=== PATIENT | female | born 1935 | race Caucasian/White ===

== ENCOUNTER 2018-07-24 16:12 | Inpatient (IN) | payer MEDICARE, OTHER ==
[~2018-07-24] VITALS: Ht 157.5 cm; Wt 42.2 kg
[~2018-07-24 16:12] MED LIST: ATOR80TA18; CALC600T; CLOP75TA19; DENO60DI SQ; FA/M1TAB3; FOLI0.4T2; METO25TA54; NITR0.4T28; TRIA-15
[2018-07-24] MEDS ORDERED: SOD CHLORIDE 0.9% 1,000 ML IV STA (16:20)
--- NOTE | 2018-07-24 17:00 | ERD ---
ER Documentation Chief Complaint Chief Complaint BIB RA FOR DEHYDRATION SENT FROM HER DOCTOR HPI This is an 83-year-old female who is brought to the emergency room for possible dehydration. Initially the report was that she was sent by her doctor but this is not confirmed based on her history. The patient lives alone. Paramedics reported a disheveled living situation. Patient thinks that she may be dehydrated but she denies any significant symptoms. She denies any headache chest pain or shortness of breath. Patient states that she is feeding herself and getting her self to the bathroom. She did mention that she may have been thinking about getting some help at home. Remainder of HPI is somewhat limited. ROS All systems reviewed and are negative except as per history of present illness. Medications Home Meds Discontinued Reported Medications Denosumab (Prolia) 60 Mg/1 Ml Disp.syrin, 60 MG SQ 2TIMES A YEAR 05/02/12 Nitroglycerin (Nitroquick) 0.4 Mg Tab.subl 10/02/09 Fa/Mv,Ca,Fe,Min/Lycopene/Lut (Centrum Tablet) 1 Tab Tablet 06/22/09 Calcium Carbonate (Calcium) 600 Mg Tablet 06/22/09 Folic Acid* (Folic Acid*) 0.4 Mg Tablet 06/22/09 Triamterene/Hydrochlorothiazid (Triamterene-Hctz 37.5-25 Mg Tb) 1 Tab Tablet 06/22/09 Atorvastatin (Lipitor) 80 Mg Tablet 06/22/09 Metoprolol Succinate (Toprol Xl) 25 Mg Tab.sr.24h 06/22/09 Clopidogrel Bisulfate (Plavix) 75 Mg Tablet 06/22/09 Allergies Allergies: Coded Allergies: allopurinol (Verified Allergy, Mild, RASH, 07/24/18) PMhx/Soc History of Surgery: Yes (APPENDECTOMY-1951,OVARIAN CYST-,D&C-,ANGIOPLASTY/STENT-2000,) Anesthesia Reaction: No Hx Neurological Disorder: No Hx Respiratory Disorders: No Hx Cardiac Disorders: Yes (CAD,HTN,HIGH CHOLESTEROL) Hx Psychiatric Problems: Yes Hx Miscellaneous Medical Probl: No (HTN, HIHG CHOLESTEROL,PVD) Hx Alcohol Use: No Hx Substance Use: No Hx Tobacco Use: No Smoking Status: Never smoker FmHx Family History: No diabetes Physical Exam Vitals Vital Signs Date Temp Pulse Resp B/P (MAP) Pulse Ox O2 O2 Flow FiO2 Time Delivery Rate 07/24/18 95 26 142/74 97 Room Air 19:00 (96) 07/24/18 89 18 151/75 100 18:00 (100) 07/24/18 98.7 104 18 190/79 100 16:24 (116) Physical Exam General: Cachectic elderly female, somewhat disheveled, unkempt Head: Normocephalic, atraumatic. Eyes: Pupils equally reactive, EOM intact ENT: Moist mucous membranes Neck: Supple, no lymphadenopathy Respiratory: Lungs clear bilaterally, no distress Cardiovascular: RRR, no murmurs, rubs, or gallops Abdominal: Soft, non-tender, non-distended, no peritoneal signs : Deferred MSK: No edema, no unilateral swelling, 5/5 strength Neurologic: Alert and oriented, moving all extremities, normal speech, no focal weakness, no cerebellar signs Skin: No rash Psych: Normal mood Result Diagram: 07/24/18 1643 07/24/18 1644 Results 24 hrs Laboratory Tests Test 07/24/18 16:43 07/24/18 16:44 07/24/18 19:25 White Blood Count 6.6 10^3/ul Red Blood Count 4.04 10^6/ul Hemoglobin 10.4 g/dl Hematocrit 33.1 % Mean Corpuscular Volume 81.9 fl Mean Corpuscular Hemoglobin 25.7 pg Mean Corpuscular 31.4 g/dl Hemoglobin Concent Red Cell Distribution Width 15.3 % Platelet Count 418 10^3/UL Mean Platelet Volume 9.2 fl Immature Granulocytes % 0.300 % Neutrophils % 81.1 % Lymphocytes % 9.6 % Monocytes % 8.5 % Eosinophils % 0.2 % Basophils % 0.3 % Nucleated Red Blood Cells % 0.0 /100WBC Immature Granulocytes # 0.020 10^3/ul Neutrophils # 5.4 10^3/ul Lymphocytes # 0.6 10^3/ul Monocytes # 0.6 10^3/ul Eosinophils # 0.0 10^3/ul Basophils # 0.0 10^3/ul Nucleated Red Blood Cells # 0.0 10^3/ul Prothrombin Time 14.0 Sec Prothrombin Time Ratio 1.1 INR International 1.07 Normalized Ratio Activated Partial Thromboplast 31.1 Sec Time Sodium Level 140 mmol/L Potassium Level 3.8 mmol/L Chloride Level 105 mmol/L Carbon Dioxide Level 30 mmol/L Anion Gap 5 Blood Urea Nitrogen 14 mg/dl Creatinine 0.81 mg/dl Est Glomerular Filtrat mL/min Rate mL/min Glucose Level 120 mg/dl Calcium Level 8.9 mg/dl Total Bilirubin 0.3 mg/dl Direct Bilirubin 0.00 mg/dl Indirect Bilirubin 0.3 mg/dl Aspartate Amino 23 IU/L Transf (AST/SGOT) Alanine 18 IU/L Aminotransferase (ALT/SGPT) Alkaline Phosphatase 102 IU/L Troponin I 0.021 ng/ml Total Protein 5.6 g/dl Albumin 2.7 g/dl Globulin 2.90 g/dl Albumin/Globulin Ratio 0.93 Free Thyroxine Index 2.71 ug/ml Thyroxine (T4) 6.1 ug/dl Triiodothyronine (T3) Uptake 44.4 % Urine Color YELLOW Urine Clarity CLEAR Urine pH 7.0 Urine Specific [place] 1.023 Urine Ketones NEGATIVE mg/dL Urine Nitrite NEGATIVE mg/dL Urine Bilirubin NEGATIVE mg/dL Urine Urobilinogen NEGATIVE mg/dL Urine Leukocyte Esterase NEGATIVE Todd/ul Urine Hemoglobin NEGATIVE mg/dL Urine Glucose NEGATIVE mg/dL Urine Total Protein NEGATIVE mg/dl Current Medications Medications Dose Sig/Stef Start Time Status Last (Trade) Ordered Route PRN Stop Time Admin Dose Reason Admin Sodium 1,000 ml @ Q1H STAT 07/24/18 DC 07/24/18 Chloride 1,000 mls/hr IV 16:20 16:49 07/24/18 17:19 IV Flush 10 ml STK-MED 07/24/18 DC (NS 10 ml) ONCE .ROUTE 18:32 07/24/18 18:33 Sodium 100 ml @ ud STK-MED 07/24/18 DC Chloride ONCE .ROUTE 18:32 07/24/18 18:33 Iohexol 150 ml STK-MED 07/24/18 DC (Omnipaque ONCE .ROUTE 18:32 300mg/ ml) 07/24/18 18:33 Ondansetron 4 mg BRIDGE ORDER 07/24/18 HCl (Zofran PRN IV 20:00 Inj) NAUSEA/VOMITI 07/25/18 19:59 NG 650 mg ER BRIDGE 07/24/18 Acetaminophen PRN PO 20:00 (Tylenol .MILD PAIN 07/25/18 19:59 Tab) 1-3 OR TEMP IV Flush 3 ml PER 07/24/18 (NS 3 ml) PROTOCOL IV 20:00 Ondansetron 4 mg Q6H PRN 07/24/18 HCl (Zofran PO 20:00 Tab) NAUSEA/VOMITI NG 650 mg Q6H PRN 07/24/18 Acetaminophen PO .PAIN 1-3 20:00 (Tylenol OR TEMP Tab) 1 tab Q6H PRN 07/24/18 Acetaminophen PO .MOD PAIN 20:00 / 4-6 Hydrocodone Bitart ([place] (5/325)) Docusate 100 mg Q12H PRN 07/24/18 Sodium PO 20:00 (Colace) .CONSTIPATION Bisacodyl 5 mg DAILY PRN 07/24/18 (Dulcolax) PO 20:00 .CONSTIPATION Heparin 5,000 unit Q8 SC 07/24/18 Sodium 22:00 (Porcine) (Heparin (5000 Units/1ml)) Procedures/MDM EKG, MONITORS, & DIAGNOSTIC IMAGING: EKG: I reviewed and interpreted a 12-lead EKG. Rhythm: Normal sinus rhythm ST Changes: No contiguous ST segment elevations T waves: No contiguous T wave inversions Impression: No evidence of acute cardiac ischemia Chest x-ray: I reviewed and interpreted a 1 view of the chest Mediastinum: No enlargement Cardiac silhouette: No cardiomegaly Airspace: Left upper lung field mass, new Bones: No evidence of fracture CT IMPRESSION: 1. Left lung demonstrates a soft tissue mass-like area extending from the left hilum to the lateral pleural surface. This density measures 6.8 x 4.7 x 5.3 cm. There are no air bronchograms within the soft tissue density. The margins appears somewhat spiculated. There is compression of the left lower lobe pulmonary artery by the mass. The findings are suggestive of a neoplastic mass, likely perihilar location, with peripheral atelectasis associated. Consider tissue sampling. 2. 9 mm slightly spiculated nodule in the posterior aspect of the right upper lobe. 3 mm right apical nodule seen laterally. This is concerning for possible metastatic disease. 3. There is a T12 compression fracture which is indeterminate in age. There may be a focal lesion within the T12 vertebral body. This raises concern for a pathologic fracture, secondary to focal metastasis.. 4. Diffuse osteopenia. Severe old, benign T7 compression fracture. RPTAT: [facility] LAB INTERPRETATION: I reviewed the laboratory testing and it shows no evidence of acute process MEDICAL DECISION MAKING: It is unclear exactly what triggered the patient's visit to the emergency room. She states that she did not call EMS. It does sound like there is possible significant issues with her home social situation. The patient is very unkempt, it appears the paramedics were concerned about her living situation. administrative services specialist has been consulted for evaluation and discharge planning. Clinically the patient may have some mild evidence of dehydration. She has a nonfocal neurologic exam. Low concern for stroke, ACS or infectious process. However, given her age it would be appropriate to check lavatory testing to rule out severe dehydration or alternative ischemic process. ER COURSE: * Laboratory testing is reassuring. However the patient has a new mass on chest x-ray. CT of the chest confirms likely metastatic disease. Patient on these findings the patient would benefit from hospitalization for further disposition planning, prognosis and treatment plan. * bed worker has evaluated the patient it does appear that she does have some decent director of social work resources. They will continue to follow. CONSULTATION: None DISPOSITION PLAN: Accepting care team and consultations: I discussed the current laboratory data, diagnostic imaging and emergency care provided. Admitting team: Dr. Fox Admitting team indication: Insurance directed Departure Diagnosis: Primary Impression: Lung mass Condition: Stable KRYSTLE QUEZADA MD Jul 24, 2018 17:00
[2018-07-24] MEDS ORDERED: IOHEXOL 300MG/ML 150 ML BTL ONE (18:32)
[2018-07-24] MEDS ORDERED: SOD CHLORIDE 0.9% 100 ML ONE (18:32)
[2018-07-24] MEDS ORDERED: BISACODYL (EC) 5 MG TAB PO PRN (20:00)
[2018-07-24] MEDS ORDERED: HYDROCODONE/APAP (5/325) TAB PO PRN (20:00)
[2018-07-24] MEDS ORDERED: ONDANSETRON 4 MG INJ IV PRN (20:00)
[2018-07-24] MEDS ORDERED: DOCUSATE SODIUM 100 MG CAP PO PRN (20:00)
[2018-07-24] MEDS ORDERED: ONDANSETRON 4 MG TAB PO PRN (20:00)
[2018-07-24] MEDS ORDERED: NACL 0.9% 3 ML SYG IV SCH (20:00)
[2018-07-24] MEDS ORDERED: ACETAMINOPHEN 325 MG TAB PO PRN ×2 (20:00)
--- NOTE | 2018-07-24 20:07 | HP ---
Date/Time of Note Date/Time of Note DATE: 07/24/18 TIME: 20:03 Assessment/Plan VTE Prophylaxis SCD applied (from Nsg): Yes Pharmacological prophylaxis: NA/contraindicated Pharm contraindication: low risk/ambulating Lines/Catheters IV Catheter Type (from Nrsg): Saline Lock Assessment/Plan Hospital Course This is a 83-year-old female being admitted to the [facility] floor for: #1 acute mild dehydration: IV fluid hydration with normal saline. Will encourage p.o. intake. #2 Lung mass: CT of the abdomen shows a lung mass please see CT report for details. Patient would like to obtain a biopsy to find out the diagnosis, however she states that she does not want to undergo any treatment such as chemotherapy for it if it does bottom turning lathe tender to be cancer. Will consult hematology Dr. Reinoso. Will order a ultrasound-guided biopsy. Consider hospice evaluation. #3 multiple nodules: CT scan showed multiple nodules please see report. Likely secondary to underlying malignancy. Will obtain a CT biopsy of the lung mass #4 pathologic fracture of the spine: Again likely secondary to malignancy, supportive care. #5 protein calorie malnutrition: IV fluid hydration. Encourage p.o. intake. Di etary consultation. #6 generalized weakness: IV fluid hydration, will obtain a PT evaluation. Soci al work consult. Consider hospice evaluation. #7 accelerated hypertension: Patient currently not on any medications. She did present with blood pressures in the 190 systolic. I will start her on Norvasc 2.5 mg p.o. daily #8 DVT GI prophylaxis: SCDs, no GI prophylaxis indicated Further treatment strategy will be implemented as per the clinical course CODE STATUS: DNR/DNI Result Diagram: 07/24/18 1643 07/24/18 1644 Results 24hrs Laboratory Tests Test 07/24/18 16:43 07/24/18 16:44 07/24/18 19:25 White Blood Count 6.6 Red Blood Count 4.04 L Hemoglobin 10.4 L Hematocrit 33.1 L Mean Corpuscular Volume 81.9 L Mean Corpuscular Hemoglobin 25.7 L Mean Corpuscular Hemoglobin Concent 31.4 L Red Cell Distribution Width 15.3 H Platelet Count 418 H Mean Platelet Volume 9.2 Immature Granulocytes % 0.300 Neutrophils % 81.1 H Lymphocytes % 9.6 L Monocytes % 8.5 Eosinophils % 0.2 Basophils % 0.3 Nucleated Red Blood Cells % 0.0 Immature Granulocytes # 0.020 Neutrophils # 5.4 Lymphocytes # 0.6 L Monocytes # 0.6 Eosinophils # 0.0 Basophils # 0.0 Nucleated Red Blood Cells # 0.0 Prothrombin Time 14.0 Prothrombin Time Ratio 1.1 INR International Normalized Ratio 1.07 Activated Partial Thromboplast Time 31.1 Sodium Level 140 Potassium Level 3.8 Chloride Level 105 Carbon Dioxide Level 30 Anion Gap 5 Blood Urea Nitrogen 14 Creatinine 0.81 Est Glomerular Filtrat Rate mL/min Glucose Level 120 Calcium Level 8.9 Total Bilirubin 0.3 Direct Bilirubin 0.00 Indirect Bilirubin 0.3 Aspartate Amino Transf (AST/SGOT) 23 Alanine Aminotransferase (ALT/SGPT) 18 Alkaline Phosphatase 102 Troponin I 0.021 Total Protein 5.6 L Albumin 2.7 L Globulin 2.90 Albumin/Globulin Ratio 0.93 Free Thyroxine Index 2.71 Thyroxine (T4) 6.1 Triiodothyronine (T3) Uptake 44.4 H Urine Color YELLOW Urine Clarity CLEAR Urine pH 7.0 Urine Specific [place] 1.023 Urine Ketones NEGATIVE Urine Nitrite NEGATIVE Urine Bilirubin NEGATIVE Urine Urobilinogen NEGATIVE Urine Leukocyte Esterase NEGATIVE Urine Hemoglobin NEGATIVE Urine Glucose NEGATIVE Urine Total Protein NEGATIVE HPI/ROS Admit Date/Time Admit Date/Time Hx of Present Illness Chief complaint: Dehydration This is an 83-year-old female who is brought to the emergency room for possible dehydration. Initially the report was that she was sent by her doctor but this is not confirmed based on her history. The patient lives alone. Paramedics reported a disheveled living situation. Patient thinks that she may be dehydrated but she denies any significant symptoms. She denies any headache chest pain or shortness of breath. Patient states that she is feeding herself and getting her self to the bathroom. She did mention that she may have been thinking about getting some help at home. aircraft layout worker did see the patient and it was found that the patient does not have any family members or friends relatives. She reports that her industrial production manager is closest person to her at her living space. Please see social work note for full details. Patient does report that she has noted some dizzy spells at times. And has been short of breath and has had weight loss. She does report a poor appetite. Does report a history of nodules that were removed but she denies any history of cancer. Allergies: Allopurinol, chicken , turkey Medications: None ROS Const: As per HPI Eyes : No pain discharge or redness or change in visual acuity ENT: No pain, sore throat, congestion, congestion, dysphagia or discharge Respiratory: As per HPI Cardiovascular: No chest pain, palpitation, PND, or edema GI : no change in appetite, abdominal pain, nausea, vomiting, diarrhea, constipation, or change in the color his stool Genitourinary: No dysuria, hematuria, flank pain , discharge or CVA tenderness Musculoskeletal: No joint pain, back pain, neck pain, restricted range of motion in neck or joints Skin: No rash, bruising or hives Neuro: No headache, dizziness, syncope, seizure, focal weakness Endocrine: No polyuria, polydipsia, temperature intolerance Psych: No hallucination, depression, anxiety or suicidal ideation PMH/Family/Social Past Medical History Hypertension, hyperlipidemia Medications Current Medications Ondansetron HCl (Zofran Inj) 4 mg BRIDGE ORDER PRN IV NAUSEA/VOMITING; Start 07/24/18 at 20:00; Stop 07/25/18 at 19:59 Acetaminophen (Tylenol Tab) 650 mg ER BRIDGE PRN PO .MILD PAIN 1-3 OR TEMP; Start 07/24/18 at 20:00; Stop 07/25/18 at 19:59 IV Flush (NS 3 ml) 3 ml PER PROTOCOL IV ; Start 07/24/18 at 20:00; Status UNV Ondansetron HCl (Zofran Tab) 4 mg Q6H PRN PO NAUSEA/VOMITING; Start 07/24/18 at 20:00; Status UNV Acetaminophen (Tylenol Tab) 650 mg Q6H PRN PO .PAIN 1-3 OR TEMP; Start 07/24/18 at 20:00; Status UNV Acetaminophen/ Hydrocodone Bitart ([place] (5/325)) 1 tab Q6H PRN PO .MOD PAIN 4- 6; Start 07/24/18 at 20:00; Status UNV Docusate Sodium (Colace) 100 mg Q12H PRN PO .CONSTIPATION; Start 07/24/18 at 20:00; Status UNV Bisacodyl (Dulcolax) 5 mg DAILY PRN PO .CONSTIPATION; Start 07/24/18 at 20:00; Status UNV Heparin Sodium (Porcine) (Heparin (5000 Units/1ml)) 5,000 unit Q8 SC ; Start 07/24/18 at 22:00; Status UNV Coded Allergies: chicken derived (Verified Allergy, Intermediate, upset stomach/diarrhea , 07/24/18) turkey (Verified Allergy, Intermediate, upset stomach/diarrha , 07/24/18) allopurinol (Verified Allergy, Mild, RASH, 07/24/18) Past Surgical History Appendectomy, partial hysterectomy, tumor removal? Family History Significant Family History: no pertinent family hx Social History Alcohol Use: none Smoking Status: Former smoker Drug Use: none Exam/Review of Systems Vital Signs Vitals Vital Signs Date Temp Pulse Resp B/P (MAP) Pulse Ox O2 O2 Flow FiO2 Time Delivery Rate 07/24/18 95 26 142/74 97 Room Air 19:00 (96) 07/24/18 98.7 16:24 Exam Exam General: This is a very pleasant, thin/cachectic appearing female lying in bed in no acute distress HEENT: Atraumatic, normocephalic. The pupils are equal, round and reactive. Extraocular motor are intact mucous membranes dry Neck: Supple with full range of motion. No rigidity or meningismus Chest: Nontender Lungs: Diminished breath sounds at the left lung base Heart: Normal S1-S2, Regular rhythm and rate. No murmur, S3, or S4 Abdomen: Soft , nontender, nondistended , bowel sounds are present. No guarding no rebound tenderness , No masses or organomegaly. No costovertebral temporal angle mass Extremities: Normal to inspection, no edema no cyanosis Neurologic: Normal mental status, speech normal, cranial nerves II through XII are intact, motor and sensory are intact, Additional Comments PROCEDURE: XR Chest. CLINICAL INDICATION: Altered mental status TECHNIQUE: Single frontal view of the chest was obtained COMPARISON: CR CHEST 05/02/2012; CR PORT CHEST 08/04/2008; CR PORTABLE CHEST 05/17/2008 FINDINGS: There is new increased density in left perihilar region suspicious for a mass with postobstructive infiltrate. CT chest with contrast is recommended for further evaluation. There is minimal prominence of the lung interstitium likely minimal chronic changes. Enlargement of the cardiac silhouette again seen. Likely small left pleural effusion appearing since previous studies. Calcification in the aortic arch. The patient is mildly rotated to the left. ECG leads project over the chest. IMPRESSION: There is new increased density in left perihilar region suspicious for a mass with postobstructive infiltrate. Suspicious for nodular densities in bilateral upper lungs the larger approximate 1 cm on the left. CT chest with contrast is recommended for further evaluation. Enlargement of the cardiac silhouette again seen. Likely small left pleural effusion appearing since previous studies. RPTAT: [facility] .Vasyl Valencia MD, Date Time Electronically viewed and signed by .Vasyl Valencia MD, on 07/24/2018 17:25 .S/ CC: KRYSTLE QUEZADA MD [id number] PROCEDURE: CT Chest With Intravenous Contrast CLINICAL INDICATION: Abnormal chest x-ray. Left lung mass versus infiltrate. TECHNIQUE: Axial computed tomography images of the chest with intravenous contrast. Sagittal and coronal reformatted images were created and reviewed. CTDIvol (mGy) = 3.36; total DLP (mGy-cm) = 113.88. This CT exam was performed using one or more of the following dose reduction techniques: automated exposure control, adjustment of the mA and/or kV according to patient size, and/or use of iterative reconstruction technique. DICOM images are available. CONTRAST: 100 mL of Omnipaque-300 was administered intravenously. COMPARISON: XR chest dated 07/24/2018 (07/24/2018) FINDINGS: LUNGS: Left lung demonstrates a soft tissue mass-like area extending from the left hilum to the lateral pleural surface. This density measures 6.8 x 4.7 x 5.3 cm. There are no air bronchograms within the soft tissue density. The margins appears somewhat spiculated. There is compression of the left lower lobe pulmonary artery by the mass. 9 mm slightly spiculated nodule in the posterior aspect of the right upper lobe. 3 mm right apical nodule seen laterally. PLEURAL SPACE: Unremarkable. Unremarkable. No pneumothorax. HEART: No cardiomegaly. No significant pericardial effusion. BONES/JOINTS: There is a T12 compression fracture which is indeterminate in age. There may be a focal lesion within the T12 vertebral body. This raises concern for a pathologic fracture, secondary to focal metastasis.. Diffuse osteopenia. Severe old, benign T7 compression fracture. No dislocation. SOFT TISSUES: No acute abnormality of the soft tissues. There is virtually no subcutaneous fat, suggesting cachexia. VASCULATURE: Atherosclerosis of the thoracic aorta. No dissection or aneurysm. LYMPH NODES: Unremarkable. No enlarged lymph nodes. IMPRESSION: 1. Left lung demonstrates a soft tissue mass-like area extending from the left hilum to the lateral pleural surface. This density measures 6.8 x 4.7 x 5.3 cm. There are no air bronchograms within the soft tissue density. The margins appears somewhat spiculated. There is compression of the left lower lobe pulmonary artery by the mass. The findings are suggestive of a neoplastic mass, likely perihilar location, with peripheral atelectasis associated. Consider tissue sampling. 2. 9 mm slightly spiculated nodule in the posterior aspect of the right upper lobe. 3 mm right apical nodule seen laterally. This is concerning for possible metastatic disease. 3. There is a T12 compression fracture which is indeterminate in age. There may be a focal lesion within the T12 vertebral body. This raises concern for a pathologic fracture, secondary to focal metastasis.. 4. Diffuse osteopenia. Severe old, benign T7 compression fracture. RPTAT: [facility] [place] Physician Inspector [employer] Date Time Electronically viewed and signed by [place] Physician Inspector [employer] on 07/24/2018 19:27 C/ CC: KRYSTLE QUEZADA MD [id number] ALLY VALLEJO Jul 24, 2018 20:07
[2018-07-24 21:48] VITALS: Ht 157.5 cm; Wt 42.2 kg
[2018-07-24 22:00] VITALS: PULSE 97
[2018-07-24 22:04] VITALS: BP 155/84; RESP 18
[2018-07-24] MEDS: HEPARIN 5,000 UNIT/1 ML VIAL SC SCH (22:37)
[2018-07-25] VITALS (10 sets, daily range): BP systolic 111–193; BP diastolic 58–98; PULSE 73–114; RESP 14–20
[2018-07-25] MEDS: HEPARIN 5,000 UNIT/1 ML VIAL SC SCH ×3 (05:44→21:20)
[2018-07-25] MEDS: AMLODIPINE 2.5 MG TAB PO SCH (09:57)
--- NOTE | 2018-07-25 13:21 | PN ---
Date/Time of Note Date/Time of Note DATE: 07/25/18 TIME: 13:17 Assessment/Plan VTE Prophylaxis Risk score (from Nsg)>0 risk: 4 SCD applied (from Nsg): Yes Pharmacological prophylaxis: heparin Lines/Catheters IV Catheter Type (from Nrs): Saline Lock Urinary Cath still in place: No Assessment/Plan Hospital Course SUBJECTIVE: Denies any pain. Complains of urinary urgency and frequency. OBJECTIVE: Physical Exam General: Thin, frail looking, 83 year-old female lying in bed in no apparent distress. HEENT: Normocephalic, atraumatic. Eyes: Anicteric sclerae, conjunctivae clear. ENT: Nasal septum midline, oral mucosa moist. Neck supple, no JVD noticed. Respiratory: Bilaterally diminished breath sounds. No use of accessory muscles of respiration. No adventitious breath sounds. Cardiovascular: S1, S2 heard. Occasional skipped beats. Abdomen: Soft, nontender, and nondistended. Bowel sounds positive in all 4 quadrants. Genitourinary: Deferred. Extremities: No cyanosis, no clubbing, no edema. Peripheral pulses palpable. Neurologic: Cranial nerves II through XII grossly intact. The patient is awake, alert, and oriented. Skin: Normal skin turgor. No skin rashes. Labs & Vitals per chart ASSESSMENT & PLAN 83-year-old female with past medical history of CAD with coronary artery stents, severe peripheral artery disease, hypertension, and dyslipidemia, not on any medications at home, who was brought to the emergency room for possible dehydration. In the emergency room, the patient was noticed to have a microcytic, hypochromic anemia. Patient's a chest x-ray was showing left perihilar region increased density with the chest CT showing is soft tissue masslike area measuring 6.8 x 4.7 x 5.3 cm, was admitted to inpatient setting f or further treatment and evaluation. 1. Suspicious soft tissue lung mass. Etiology unclear. CT-guided biopsy has been ordered for diagnostic evaluation. 2. Hypertension. The patient was started on appropriate antihypertensives. 3. CAD with coronary artery stents. Patient was not on any aspirin or statins at home. Start the patient on aspirin and statins. 4. Severe peripheral artery disease. Continue the patient on aspirin and statins. 5. T12 compression fracture. Continue analgesics as needed. 6. Microcytic, hypochromic anemia. Iron panel showing iron deficiency. Start iron supplements. 7. Severe protein calorie malnutrition. Dietary consult. 8. Failure to thrive. The patient lives by herself and has no immediate family members. Obtain social work consult. 9. Fluids, electrolytes, and nutrition. Regular diet. 10. DVT prophylaxis. Subcutaneous heparin. 11. Plan. Await biopsy of the lung lesion. Continue blood pressure control. Await social work evaluation. The patient was seen in collaboration with Dr. Lancaster. Result Diagram: 07/25/18 0453 07/25/18 0453 Results 24hrs Laboratory Tests Test 07/24/18 16:43 07/24/18 16:44 07/24/18 19:25 07/25/18 04:53 White Blood Count 6.6 5.0 # Red Blood Count 4.04 L 3.80 L Hemoglobin 10.4 L 9.7 L Hematocrit 33.1 L 31.1 L Mean Corpuscular 81.9 L 81.8 L Volume Mean Corpuscular 25.7 L 25.5 L Hemoglobin Mean Corpuscular 31.4 L 31.2 L Hemoglobin Concent Red Cell 15.3 H 15.2 H Distribution Width Platelet Count 418 H 384 Mean Platelet Volume 9.2 9.4 Immature 0.300 0.400 Granulocytes % Neutrophils % 81.1 H 78.6 H Lymphocytes % 9.6 L 11.4 L Monocytes % 8.5 9.0 Eosinophils % 0.2 0.2 Basophils % 0.3 0.4 Nucleated Red Blood 0.0 0.0 Cells % Immature 0.020 0.020 Granulocytes # Neutrophils # 5.4 3.9 Lymphocytes # 0.6 L 0.6 L Monocytes # 0.6 0.5 Eosinophils # 0.0 0.0 Basophils # 0.0 0.0 Nucleated Red Blood 0.0 0.0 Cells # Prothrombin Time 14.0 14.5 Prothrombin Time 1.1 1.1 Ratio INR International 1.07 1.12 Normalized Ratio Activated 31.1 31.0 Partial Thromboplast Time Sodium Level 140 142 Potassium Level 3.8 3.2 L Chloride Level 105 109 Carbon Dioxide Level 30 27 Anion Gap 5 6 Blood Urea Nitrogen 14 13 Creatinine 0.81 0.80 Est Glomerular Filtrat Rate mL/min Glucose Level 120 121 Calcium Level 8.9 8.1 L Total Bilirubin 0.3 0.3 Direct Bilirubin 0.00 0.00 Indirect Bilirubin 0.3 0.3 Aspartate Amino 23 18 Transf (AST/SGOT) Alanine 18 15 Aminotransferase (AL T/SGPT) Alkaline Phosphatase 102 93 Troponin I 0.021 Total Protein 5.6 L 5.5 L Albumin 2.7 L 2.5 L Globulin 2.90 3.00 Albumin/Globulin 0.93 0.83 Ratio Free Thyroxine Index 2.71 Thyroxine (T4) 6.1 Triiodothyronine 44.4 H (T3) Uptake Urine Color YELLOW Urine Clarity CLEAR Urine pH 7.0 Urine Specific 1.023 [place] Urine Ketones NEGATIVE Urine Nitrite NEGATIVE Urine Bilirubin NEGATIVE Urine Urobilinogen NEGATIVE Urine Leukocyte NEGATIVE Esterase Urine Hemoglobin NEGATIVE Urine Glucose NEGATIVE Urine Total Protein NEGATIVE Hemoglobin A1c 5.5 Magnesium Level 1.3 L Iron Level 14 L Total Iron Binding 163 L Capacity Percent Iron 9 L Saturation Ferritin 136.0 Triglycerides Level 135 Cholesterol Level 178 LDL Cholesterol, 118 Calculated HDL Cholesterol 33 Cholesterol/HDL 5.3 Ratio Carcinoembryonic 4.2 Antigen CA 19-9 Antigen 4.7 CA 125 Antigen 82.7 H Thyroid Stimulating 2.400 Hormone (TSH) Exam/Review of Systems Exam Vitals Vital Signs Date Temp Pulse Resp B/P (MAP) Pulse Ox O2 O2 Flow FiO2 Time Delivery Rate 07/25/18 95 181/81 09:51 (114) 07/25/18 98.0 14 95 07:52 07/24/18 Room Air 19:00 Intake and Output 07/24/18 07/24/18 07/25/18 1515:00 23:00 07:00 IntakeIntake Total 160 ml OutputOutput Total 400 ml BalanceBalance -240 ml Results Results 24hrs Laboratory Tests Test 07/24/18 16:43 07/24/18 16:44 07/24/18 19:25 07/25/18 04:53 White Blood Count 6.6 5.0 # Red Blood Count 4.04 L 3.80 L Hemoglobin 10.4 L 9.7 L Hematocrit 33.1 L 31.1 L Mean Corpuscular 81.9 L 81.8 L Volume Mean Corpuscular 25.7 L 25.5 L Hemoglobin Mean Corpuscular 31.4 L 31.2 L Hemoglobin Concent Red Cell 15.3 H 15.2 H Distribution Width Platelet Count 418 H 384 Mean Platelet Volume 9.2 9.4 Immature 0.300 0.400 Granulocytes % Neutrophils % 81.1 H 78.6 H Lymphocytes % 9.6 L 11.4 L Monocytes % 8.5 9.0 Eosinophils % 0.2 0.2 Basophils % 0.3 0.4 Nucleated Red Blood 0.0 0.0 Cells % Immature 0.020 0.020 Granulocytes # Neutrophils # 5.4 3.9 Lymphocytes # 0.6 L 0.6 L Monocytes # 0.6 0.5 Eosinophils # 0.0 0.0 Basophils # 0.0 0.0 Nucleated Red Blood 0.0 0.0 Cells # Prothrombin Time 14.0 14.5 Prothrombin Time 1.1 1.1 Ratio INR International 1.07 1.12 Normalized Ratio Activated 31.1 31.0 Partial Thromboplast Time Sodium Level 140 142 Potassium Level 3.8 3.2 L Chloride Level 105 109 Carbon Dioxide Level 30 27 Anion Gap 5 6 Blood Urea Nitrogen 14 13 Creatinine 0.81 0.80 Est Glomerular Filtrat Rate mL/min Glucose Level 120 121 Calcium Level 8.9 8.1 L Total Bilirubin 0.3 0.3 Direct Bilirubin 0.00 0.00 Indirect Bilirubin 0.3 0.3 Aspartate Amino 23 18 Transf (AST/SGOT) Alanine 18 15 Aminotransferase (AL T/SGPT) Alkaline Phosphatase 102 93 Troponin I 0.021 Total Protein 5.6 L 5.5 L Albumin 2.7 L 2.5 L Globulin 2.90 3.00 Albumin/Globulin 0.93 0.83 Ratio Free Thyroxine Index 2.71 Thyroxine (T4) 6.1 Triiodothyronine 44.4 H (T3) Uptake Urine Color YELLOW Urine Clarity CLEAR Urine pH 7.0 Urine Specific 1.023 [place] Urine Ketones NEGATIVE Urine Nitrite NEGATIVE Urine Bilirubin NEGATIVE Urine Urobilinogen NEGATIVE Urine Leukocyte NEGATIVE Esterase Urine Hemoglobin NEGATIVE Urine Glucose NEGATIVE Urine Total Protein NEGATIVE Hemoglobin A1c 5.5 Magnesium Level 1.3 L Iron Level 14 L Total Iron Binding 163 L Capacity Percent Iron 9 L Saturation Ferritin 136.0 Triglycerides Level 135 Cholesterol Level 178 LDL Cholesterol, 118 Calculated HDL Cholesterol 33 Cholesterol/HDL 5.3 Ratio Carcinoembryonic 4.2 Antigen CA 19-9 Antigen 4.7 CA 125 Antigen 82.7 H Thyroid Stimulating 2.400 Hormone (TSH) Medications Medication Current Medications Ondansetron HCl (Zofran Inj) 4 mg BRIDGE ORDER PRN IV NAUSEA/VOMITING; Start 07/24/18 at 20:00; Stop 07/25/18 at 19:59 IV Flush (NS 3 ml) 3 ml PER PROTOCOL IV ; Start 07/24/18 at 20:00 Ondansetron HCl (Zofran Tab) 4 mg Q6H PRN PO NAUSEA/VOMITING; Start 07/24/18 at 20:00 Acetaminophen (Tylenol Tab) 650 mg Q6H PRN PO .PAIN 1-3 OR TEMP; Start 07/24/18 at 20:00 Acetaminophen/ Hydrocodone Bitart ([place] (5/325)) 1 tab Q6H PRN PO .MOD PAIN 4- 6; Start 07/24/18 at 20:00 Docusate Sodium (Colace) 100 mg Q12H PRN PO .CONSTIPATION; Start 07/24/18 at 20:00 Bisacodyl (Dulcolax) 5 mg DAILY PRN PO .CONSTIPATION; Start 07/24/18 at 20:00 Heparin Sodium (Porcine) (Heparin (5000 Units/1ml)) 5,000 unit Q8 SC Last administered on 07/25/18at 05:44; Admin Dose 5,000 UNIT; Start 07/24/18 at 22:00 Amlodipine Besylate (Norvasc) 2.5 mg DAILY PO Last administered on 07/25/18at 09:57; Admin Dose 2.5 MG; Start 07/25/18 at 10:00 SALEEM WELCH NP Jul 25, 2018 13:21
[2018-07-25] MEDS ORDERED: POTASSIUM CHLORIDE (SR) 20 MEQ TAB PO STA (13:56)
[2018-07-25] MEDS ORDERED: MAGNESIUM SULFATE 3 GM in DEXTROSE 5% 100 ML IVPB ONE (15:30)
[2018-07-25] MEDS: SOD FERRIC GLUC COMPLX 125 MG in SOD CHLORIDE 0.9% 100 ML IVPB SCH (17:17)
[2018-07-26 02:00] VITALS: BP 121/76; PULSE 89; RESP 18
[2018-07-26] MEDS: HEPARIN 5,000 UNIT/1 ML VIAL SC SCH ×3 (05:41→21:41)
[2018-07-26 07:35] VITALS: BP 134/64; PULSE 90; RESP 14
[2018-07-26] MEDS: AMLODIPINE 2.5 MG TAB PO SCH (08:32)
--- NOTE | 2018-07-26 09:19 | CONS ---
Assessment/Plan Assessment/Plan Assessment/Plan (Daily) 83yo female with a CAD, PVD, and prior tobacco use admitted with confusion and progressive weakness. Imaging revealed a large (7 x 8cm) left lower lung mass concerning for malignancy. Pt also has bilateral lung nodules and compression vertebral fractures concerning for metastatic disease. CA 19-9 elevated while CEA normal. I would suspect this pt has primary lung cancer however we should obtain a CT A/P to rule out a gynecologic primary since her CA 125 is elevated. Bx of the lung mass was obtained and pathology is pending. Pt has expressed no interest in aggressive measures but would like to identify the diagnosis and stage. Pt has poor care at home as she lives alone and appears more frail than she has been in the past. Recommendations: 1. Await lung bx results 2. CT A/P 3. If lung bx c/w lung ca, then recommend MRI brain to rule out brain mets 4. DVT ppx 5. Goals of care need to be clarified but once diagnosis available and treatment options can be properly conveyed to the pt. 6. Drs. Reinoso/Dominique to assume care tomorrow. Piero Crane MD Hematology/Oncology Consultation Date/Type/Reason Admit Date/Time Date of Consultation: Jul 26, 2018 Type of Consult Medical Oncology Reason for Consultation Lung mass suspicious for malignancy Requesting Provider: SALEEM WELCH NP Date/Time of Note DATE: 07/26/18 TIME: 09:08 Hx of Present Illness Nathalie Olivas is an 83yo female with h/o PVD and CAD who presented to this hospital with significant fatigue and weakness. She was found to be slightly confused at her home by neighbors. W/u in the ER revealed a left sided lung mass and CT chest confirmed a large posterior left lower lung mass concerning for malignancy. Smaller pulmonary nodules were noted bilaterally along with thoracic compression fractures. Pt underwent CT guided lung bx yesterday without incident. Pt has a 40-50 pk year smoking history. She stopped smoking 20 years ago. She is and lives alone. She has no children or dependents. She does not work. Constitutional: poor po Eyes: pain (some back pain) Genitourinary: no complaints, bleeding, dysuria, discharge, flank pain, hematuria, other (urinary frequency-Singh placed) Musculoskeletal: back pain Neurologic: confusion (Now better) Past Medical History Medical History: coronary artery disease, peptic ulcer disease, other (Peripheral vascular disease) Home Meds Discontinued Reported Medications Denosumab (Prolia) 60 Mg/1 Ml Disp.syrin, 60 MG SQ 2TIMES A YEAR 05/02/12 Nitroglycerin (Nitroquick) 0.4 Mg Tab.subl 10/02/09 Fa/Mv,Ca,Fe,Min/Lycopene/Lut (Centrum Tablet) 1 Tab Tablet 06/22/09 Calcium Carbonate (Calcium) 600 Mg Tablet 06/22/09 Folic Acid* (Folic Acid*) 0.4 Mg Tablet 06/22/09 Triamterene/Hydrochlorothiazid (Triamterene-Hctz 37.5-25 Mg Tb) 1 Tab Tablet 06/22/09 Atorvastatin (Lipitor) 80 Mg Tablet 06/22/09 Metoprolol Succinate (Toprol Xl) 25 Mg Tab.sr.24h 06/22/09 Clopidogrel Bisulfate (Plavix) 75 Mg Tablet 06/22/09 Medications Current Medications IV Flush (NS 3 ml) 3 ml PER PROTOCOL IV ; Start 07/24/18 at 20:00 Ondansetron HCl (Zofran Tab) 4 mg Q6H PRN PO NAUSEA/VOMITING; Start 07/24/18 at 20:00 Acetaminophen (Tylenol Tab) 650 mg Q6H PRN PO .PAIN 1-3 OR TEMP; Start 07/24/18 at 20:00 Acetaminophen/ Hydrocodone Bitart ([place] (5/325)) 1 tab Q6H PRN PO .MOD PAIN 4- 6; Start 07/24/18 at 20:00 Docusate Sodium (Colace) 100 mg Q12H PRN PO .CONSTIPATION; Start 07/24/18 at 20:00 Bisacodyl (Dulcolax) 5 mg DAILY PRN PO .CONSTIPATION; Start 07/24/18 at 20:00 Heparin Sodium (Porcine) (Heparin (5000 Units/1ml)) 5,000 unit Q8 SC Last administered on 07/26/18at 05:41; Admin Dose 5,000 UNIT; Start 07/24/18 at 22:00 Amlodipine Besylate (Norvasc) 2.5 mg DAILY PO Last administered on 07/26/18at 08:32; Admin Dose 2.5 MG; Start 07/25/18 at 10:00 Ferric Sodium Gluconate Complex 125 mg/Sodium Chloride 100 ml @ 100 mls/hr DAILY@1300 IVPB Last administered on 07/25/18at 17:17; Admin Dose 100 MLS/HR; Start 07/25/18 at 16:00; Stop 07/27/18 at 13:59 Allergies: Coded Allergies: chicken derived (Verified Allergy, Intermediate, upset stomach/diarrhea , 07/24/18) turkey (Verified Allergy, Intermediate, upset stomach/diarrha , 07/24/18) allopurinol (Verified Allergy, Mild, RASH, 07/24/18) Past Surgical History Past Surgical Hx: angioplasty Family History Significant Family History: no pertinent family hx Social History Alcohol Use: none Smoking Status: Former smoker Drug Use: none Exam/Review of Systems Exam Vitals Vital Signs Date Temp Pulse Resp B/P (MAP) Pulse Ox O2 O2 Flow FiO2 Time Delivery Rate 07/26/18 97.9 90 14 134/64 95 07:35 (87) 07/26/18 Room Air 02:00 07/25/18 2.0 23:24 Intake and Output 07/25/18 07/25/18 07/26/18 1515:00 23:00 07:00 IntakeIntake Total 580 ml OutputOutput Total 800 ml 500 ml BalanceBalance -800 ml 80 ml Constitutional: frail Respiratory: wheezing Results Result Diagram: 07/26/18 0504 07/26/18 0504 Results 24hrs Laboratory Tests Test 07/26/18 05:04 White Blood Count 5.9 Red Blood Count 3.87 L Hemoglobin 9.8 L Hematocrit 31.5 L Mean Corpuscular Volume 81.4 L Mean Corpuscular Hemoglobin 25.3 L Mean Corpuscular Hemoglobin Concent 31.1 L Red Cell Distribution Width 15.3 H Platelet Count 388 Mean Platelet Volume 9.1 Immature Granulocytes % 0.300 Neutrophils % 81.2 H Lymphocytes % 10.2 L Monocytes % 7.8 Eosinophils % 0.2 Basophils % 0.3 Nucleated Red Blood Cells % 0.0 Immature Granulocytes # 0.020 Neutrophils # 4.8 Lymphocytes # 0.6 L Monocytes # 0.5 Eosinophils # 0.0 Basophils # 0.0 Nucleated Red Blood Cells # 0.0 Sodium Level 139 Potassium Level 3.5 Chloride Level 105 Carbon Dioxide Level 30 Anion Gap 4 L Blood Urea Nitrogen 12 Creatinine 0.80 Est Glomerular Filtrat Rate mL/min Glucose Level 114 Calcium Level 8.2 L Phosphorus Level 2.8 Magnesium Level 1.9 Total Bilirubin 0.3 Direct Bilirubin 0.00 Indirect Bilirubin 0.3 Aspartate Amino Transf (AST/SGOT) 19 Alanine Aminotransferase (ALT/SGPT) 18 Alkaline Phosphatase 91 Total Protein 5.5 L Albumin 2.5 L Globulin 3.00 Albumin/Globulin Ratio 0.83 Medications Medication Current Medications IV Flush (NS 3 ml) 3 ml PER PROTOCOL IV ; Start 07/24/18 at 20:00 Ondansetron HCl (Zofran Tab) 4 mg Q6H PRN PO NAUSEA/VOMITING; Start 07/24/18 at 20:00 Acetaminophen (Tylenol Tab) 650 mg Q6H PRN PO .PAIN 1-3 OR TEMP; Start 07/24/18 at 20:00 Acetaminophen/ Hydrocodone Bitart ([place] (5/325)) 1 tab Q6H PRN PO .MOD PAIN 4- 6; Start 07/24/18 at 20:00 Docusate Sodium (Colace) 100 mg Q12H PRN PO .CONSTIPATION; Start 07/24/18 at 20:00 Bisacodyl (Dulcolax) 5 mg DAILY PRN PO .CONSTIPATION; Start 07/24/18 at 20:00 Heparin Sodium (Porcine) (Heparin (5000 Units/1ml)) 5,000 unit Q8 SC Last administered on 07/26/18at 05:41; Admin Dose 5,000 UNIT; Start 07/24/18 at 22:00 Amlodipine Besylate (Norvasc) 2.5 mg DAILY PO Last administered on 07/26/18at 08:32; Admin Dose 2.5 MG; Start 07/25/18 at 10:00 Ferric Sodium Gluconate Complex 125 mg/Sodium Chloride 100 ml @ 100 mls/hr DAILY@1300 IVPB Last administered on 07/25/18at 17:17; Admin Dose 100 MLS/HR; Start 07/25/18 at 16:00; Stop 07/27/18 at 13:59 PIERO CRANE Jul 26, 2018 09:19
--- NOTE | 2018-07-26 09:42 | PN ---
Date/Time of Note Date/Time of Note DATE: 07/26/18 TIME: 09:39 Assessment/Plan VTE Prophylaxis Risk score (from Nsg)>0 risk: 5 SCD applied (from Nsg): Yes Pharmacological prophylaxis: heparin Lines/Catheters IV Catheter Type (from Nrsg): Saline Lock Urinary Cath still in place: Yes Reason Cath still needed: other (indicate) Assessment/Plan Hospital Course SUBJECTIVE: Denies any pain. OBJECTIVE: Physical Exam General: Thin, frail looking, 83 year-old female lying in bed in no apparent distress. HEENT: Normocephalic, atraumatic. Eyes: Anicteric sclerae, conjunctivae clear. ENT: Nasal septum midline, oral mucosa moist. Neck supple, no JVD noticed. Respiratory: Bilaterally diminished breath sounds. No use of accessory muscles of respiration. No adventitious breath sounds. Cardiovascular: S1, S2 heard. Occasional skipped beats. Abdomen: Soft, nontender, and nondistended. Bowel sounds positive in all 4 quadrants. Genitourinary: Deferred. Extremities: No cyanosis, no clubbing, no edema. Peripheral pulses palpable. Neurologic: Cranial nerves II through XII grossly intact. The patient is awake, alert, and oriented. Skin: Normal skin turgor. No skin rashes. Labs & Vitals per chart ASSESSMENT & PLAN 83-year-old female with past medical history of CAD with coronary artery stents, severe peripheral artery disease, hypertension, and dyslipidemia, not on any medications at home, who was brought to the emergency room for possible dehydration. In the emergency room, the patient was noticed to have a microcy tic, hypochromic anemia. Patient's a chest x-ray was showing left perihilar region increased density with the chest CT showing is soft tissue masslike area measuring 6.8 x 4.7 x 5.3 cm, was admitted to inpatient setting for further treatment and evaluation. 1. Suspicious soft tissue lung mass. Etiology unclear. S/P CT-guided biopsy on 07/25/2018. Oncology following. 2. Hypertension. The patient was started on appropriate antihypertensives. 3. CAD with coronary artery stents. Patient was not on any aspirin or statins at home. Continue the patient on aspirin and statins. 4. Severe peripheral artery disease. S/P peripheral stents bilaterally. Continue the patient on aspirin and statins. 5. T12 compression fracture. Continue analgesics as needed. 6. Microcytic, hypochromic anemia. Iron panel showing iron deficiency. Continue iron supplements. 7. Severe protein calorie malnutrition. Dietary consult. 8. Failure to thrive. The patient lives by herself and has no immediate family members. Obtain social work consult. 9. Fluids, electrolytes, and nutrition. Regular diet. 10. DVT prophylaxis. Subcutaneous heparin. 11. Plan. Await biopsy results of the lung lesion. Continue blood pressure control. Await social work evaluation. The patient was seen in collaboration with Dr. Lancaster. Result Diagram: 07/26/18 0504 07/26/18 0504 Results 24hrs Laboratory Tests Test 07/26/18 05:04 White Blood Count 5.9 Red Blood Count 3.87 L Hemoglobin 9.8 L Hematocrit 31.5 L Mean Corpuscular Volume 81.4 L Mean Corpuscular Hemoglobin 25.3 L Mean Corpuscular Hemoglobin Concent 31.1 L Red Cell Distribution Width 15.3 H Platelet Count 388 Mean Platelet Volume 9.1 Immature Granulocytes % 0.300 Neutrophils % 81.2 H Lymphocytes % 10.2 L Monocytes % 7.8 Eosinophils % 0.2 Basophils % 0.3 Nucleated Red Blood Cells % 0.0 Immature Granulocytes # 0.020 Neutrophils # 4.8 Lymphocytes # 0.6 L Monocytes # 0.5 Eosinophils # 0.0 Basophils # 0.0 Nucleated Red Blood Cells # 0.0 Sodium Level 139 Potassium Level 3.5 Chloride Level 105 Carbon Dioxide Level 30 Anion Gap 4 L Blood Urea Nitrogen 12 Creatinine 0.80 Est Glomerular Filtrat Rate mL/min Glucose Level 114 Calcium Level 8.2 L Phosphorus Level 2.8 Magnesium Level 1.9 Total Bilirubin 0.3 Direct Bilirubin 0.00 Indirect Bilirubin 0.3 Aspartate Amino Transf (AST/SGOT) 19 Alanine Aminotransferase (ALT/SGPT) 18 Alkaline Phosphatase 91 Total Protein 5.5 L Albumin 2.5 L Globulin 3.00 Albumin/Globulin Ratio 0.83 Exam/Review of Systems Exam Vitals Vital Signs Date Temp Pulse Resp B/P (MAP) Pulse Ox O2 O2 Flow FiO2 Time Delivery Rate 07/26/18 97.9 90 14 134/64 95 07:35 (87) 07/26/18 Room Air 02:00 07/25/18 2.0 23:24 Intake and Output 07/25/18 07/25/18 07/26/18 1515:00 23:00 07:00 IntakeIntake Total 580 ml OutputOutput Total 800 ml 500 ml BalanceBalance -800 ml 80 ml Results Results 24hrs Laboratory Tests Test 07/26/18 05:04 White Blood Count 5.9 Red Blood Count 3.87 L Hemoglobin 9.8 L Hematocrit 31.5 L Mean Corpuscular Volume 81.4 L Mean Corpuscular Hemoglobin 25.3 L Mean Corpuscular Hemoglobin Concent 31.1 L Red Cell Distribution Width 15.3 H Platelet Count 388 Mean Platelet Volume 9.1 Immature Granulocytes % 0.300 Neutrophils % 81.2 H Lymphocytes % 10.2 L Monocytes % 7.8 Eosinophils % 0.2 Basophils % 0.3 Nucleated Red Blood Cells % 0.0 Immature Granulocytes # 0.020 Neutrophils # 4.8 Lymphocytes # 0.6 L Monocytes # 0.5 Eosinophils # 0.0 Basophils # 0.0 Nucleated Red Blood Cells # 0.0 Sodium Level 139 Potassium Level 3.5 Chloride Level 105 Carbon Dioxide Level 30 Anion Gap 4 L Blood Urea Nitrogen 12 Creatinine 0.80 Est Glomerular Filtrat Rate mL/min Glucose Level 114 Calcium Level 8.2 L Phosphorus Level 2.8 Magnesium Level 1.9 Total Bilirubin 0.3 Direct Bilirubin 0.00 Indirect Bilirubin 0.3 Aspartate Amino Transf (AST/SGOT) 19 Alanine Aminotransferase (ALT/SGPT) 18 Alkaline Phosphatase 91 Total Protein 5.5 L Albumin 2.5 L Globulin 3.00 Albumin/Globulin Ratio 0.83 Medications Medication Current Medications IV Flush (NS 3 ml) 3 ml PER PROTOCOL IV ; Start 07/24/18 at 20:00 Ondansetron HCl (Zofran Tab) 4 mg Q6H PRN PO NAUSEA/VOMITING; Start 07/24/18 at 20:00 Acetaminophen (Tylenol Tab) 650 mg Q6H PRN PO .PAIN 1-3 OR TEMP; Start 07/24/18 at 20:00 Acetaminophen/ Hydrocodone Bitart ([place] (5/325)) 1 tab Q6H PRN PO .MOD PAIN 4- 6; Start 07/24/18 at 20:00 Docusate Sodium (Colace) 100 mg Q12H PRN PO .CONSTIPATION; Start 07/24/18 at 20:00 Bisacodyl (Dulcolax) 5 mg DAILY PRN PO .CONSTIPATION; Start 07/24/18 at 20:00 Heparin Sodium (Porcine) (Heparin (5000 Units/1ml)) 5,000 unit Q8 SC Last administered on 07/26/18at 05:41; Admin Dose 5,000 UNIT; Start 07/24/18 at 22:00 Amlodipine Besylate (Norvasc) 2.5 mg DAILY PO Last administered on 07/26/18at 08:32; Admin Dose 2.5 MG; Start 07/25/18 at 10:00 Ferric Sodium Gluconate Complex 125 mg/Sodium Chloride 100 ml @ 100 mls/hr DA LEV@1300 IVPB Last administered on 07/25/18at 17:17; Admin Dose 100 MLS/HR; Start 07/25/18 at 16:00; Stop 07/27/18 at 13:59 SALEEM WELCH NP Jul 26, 2018 09:42
[2018-07-26] MEDS ORDERED: SOD CHLORIDE 0.9% 100 ML ONE (12:01)
[2018-07-26] MEDS ORDERED: IOHEXOL 300MG/ML 150 ML BTL ONE (12:01)
[2018-07-26] MEDS: SOD FERRIC GLUC COMPLX 125 MG in SOD CHLORIDE 0.9% 100 ML IVPB SCH (13:23)
--- NOTE | 2018-07-26 13:27 | RADRPT ---
Echocardiogram Report Patient Name: Fransisca RAMOSent ID: [id number] : 1935 (83y 3m)Study Date: 07/26/2018 10:45:34 AM Gender: FAccession #: [id number] Tech: Jeffry Jason [facility] Location: [id number] Ref.Physician: SALEEM WELCH Height(Cm): BSA: Weight(Kg): Quality: AdequateOrder Physician: SALEEM WELCH Account #: Procedures: Echocardiographic Report: Transthoracic echocardiogram with complete 2D, M-Mode, and doppler examination. Indications: Evaluate Left Ventricular function. Measurements: 2D/M Mode Doppler Measurement Value Normal Range Measurement Value Normal Range LVIDd 2D 4.6 [ 3.8 - 5.2 ] cm VALENTIN VTI 1.6 [ 2.0 - 4.0 ] cm2 LVIDs 2D 3.8 [ 2.2 - 3.5 ] cm AV Mean Franck 1.5 [ 70.0 - 90.0 ] cm/sec LVPWd 2D 0.9 [ 0.6 - 0.9 ] cm AV Mean PG 11.0 [ 2.0 - 4.0 ] mmHg IVSd 2D 0.9 [ 0.6 - 0.9 ] cm AV VTI 40.5 cm AoR Diam 2D 2.4 [ 2.3 - 3.1 ] cm LVOT Mean Franck 0.7 [ 60.0 - 80.0 ] cm/sec EDV 2D 98.8 [ 46.0 - 106.0 ] ml LVOT Mean PG 3.0 [ 1.0 - 3.0 ] mmHg ESV 2D 62.7 [ 14.0 - 42.0 ] ml LVOT Peak Franck 1.2 [ 70.0 - 110.0 ] cm/sec EF 2D 36.5 [ 54.0 - 74.0 ] percent LVOT Peak PG 5.0 [ 2.0 - 6.0 ] mmHg LA Dimen 2D 3.2 [ 2.7 - 3.8 ] cm LVOT VTI 21.1 [ 20.0 - 30.0 ] cm LVOT Diam 2.0 [ 2.1 - 2.5 ] cm MV E Peak Franck 0.9 [ 60.0 - 130.0 ] cm/sec MV A Peak Franck 1.3 [ 100.0 - 120.0 ] cm/sec MV E/A 0.7 [ 0.8 - 1.5 ] ratio MV Decel Time 225 [ 104 - 258 ] msec MV E/A 0.7 [ 0.8 - 1.5 ] ratio Findings: Left Ventricle: Normal left ventricular cavity size. Normal left ventricular wall thickness. Mild global left ventricular systolic dysfunction. Ejection fraction is visually estimated at 40 %. Tissue Doppler/Mitral Doppler indices are consistent with impaired relaxation (Stage I diastolic dysfunction). Right Ventricle: Normal right ventricular size. Normal right ventricular systolic function. Left Atrium: The left atrium is normal in size. Right Atrium: The right atrium is normal in size. Mitral Valve: Normal appearance of the mitral valve. Mild mitral leaflet calcification. Trace mitral regurgitation. Aortic Valve: Aortic valve Max velocity 2.42 m/sec. Max PG 24.00 mmHg. Mean PG 11.00 mmHg. Aortic sclerosis without significant stenosis. Trace aortic valve regurgitation. Tricuspid Valve: Normal appearance and function of the tricuspid valve with trace physiologic regurgitation. Normal right ventricular systolic pressure. Pulmonic Valve: Normal pulmonic valve appearance. Pericardium: Normal pericardium with no significant pericardial effusion. Aorta: Normal aortic root. IVC: Normal size and normal respiratory collapse consistent with normal right atrial pressure. Conclusions: Normal left ventricular cavity size. Normal left ventricular wall thickness. Mild global left ventricular systolic dysfunction. Ejection fraction is visually estimated at 40 %. Tissue Doppler/Mitral Doppler indices are consistent with impaired relaxation (Stage I diastolic dysfunction). Normal right ventricular size. Normal right ventricular systolic function. Mild mitral leaflet calcification. Trace mitral regurgitation. Aortic sclerosis without significant stenosis. Trace aortic valve regurgitation. Normal appearance and function of the tricuspid valve with trace physiologic regurgitation. Normal right ventricular systolic pressure. Normal pericardium with no significant pericardial effusion. Electronically Signed By: Chivo Corbin 2018-07-26 13:26:11 PDT
[2018-07-26] MEDS: ASPIRIN (EC) 81 MG TAB PO SCH (13:28)
[2018-07-26 19:32] VITALS: BP 133/62; PULSE 99; RESP 17
[2018-07-26] MEDS: METOPROLOL 25 MG TAB PO SCH (20:08)
[2018-07-27 02:00] VITALS: BP 124/58; PULSE 74; RESP 17
[2018-07-27] MEDS: HEPARIN 5,000 UNIT/1 ML VIAL SC SCH ×3 (05:37→21:19)
[2018-07-27 07:55] VITALS: BP 129/60; PULSE 78; RESP 16
[2018-07-27] MEDS: METOPROLOL 25 MG TAB PO SCH ×2 (09:16→21:16)
[2018-07-27] MEDS: ASPIRIN (EC) 81 MG TAB PO SCH (09:16)
--- NOTE | 2018-07-27 11:00 | PN ---
Date/Time of Note Date/Time of Note DATE: 07/27/18 TIME: 10:55 Assessment/Plan VTE Prophylaxis Risk score (from Nsg)>0 risk: 6 SCD applied (from Nsg): Yes Lines/Catheters IV Catheter Type (from Nrsg): Saline Lock Urinary Cath still in place: Yes Assessment/Plan Hospital Course Assessment and plan 1. 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 -Oncologist following. 2. Hypertension. - Continue on antihypertensives. 3. CAD with coronary artery stents. -It was reported that patient was not on any aspirin or statin medication at home. -Started on statin and aspirin in house 4. Severe peripheral artery disease -Continue on ASA and statin medication -Patient has a history of peripheral stents bilaterally for this 5. T12 compression fracture -Continue with analgesics. -Physical therapy 6. Microcytic hypochromic anemia. -Monitor H&H. -Continue with iron supplements 7. Severe protein calorie nutrition -Dietary consult is following. 8. Failure to thrive. -Patient reports living at home by herself. -cardroom worker to follow. Disposition plan. Follow-up on biopsy results. cardroom worker to follow. Case management to be involved with DC planning for safe transition to outpatient. Discussed plan of care Dr. Butler Result Diagram: 07/27/18 0505 07/27/18 0505 Results 24hrs Laboratory Tests Test 07/27/18 05:05 White Blood Count 4.5 #L Red Blood Count 3.63 L Hemoglobin 9.2 L Hematocrit 29.5 L Mean Corpuscular Volume 81.3 L Mean Corpuscular Hemoglobin 25.3 L Mean Corpuscular Hemoglobin Concent 31.2 L Red Cell Distribution Width 15.3 H Platelet Count 359 Mean Platelet Volume 9.1 Immature Granulocytes % 0.200 Neutrophils % 71.5 Lymphocytes % 16.6 Monocytes % 10.6 Eosinophils % 0.4 Basophils % 0.7 Nucleated Red Blood Cells % 0.0 Immature Granulocytes # 0.010 Neutrophils # 3.2 Lymphocytes # 0.8 Monocytes # 0.5 Eosinophils # 0.0 Basophils # 0.0 Nucleated Red Blood Cells # 0.0 Sodium Level 138 Potassium Level 3.4 L Chloride Level 106 Carbon Dioxide Level 30 Anion Gap 2 L Blood Urea Nitrogen 14 Creatinine 0.89 Est Glomerular Filtrat Rate mL/min Glucose Level 95 Calcium Level 8.4 Phosphorus Level 2.9 Magnesium Level 1.8 Total Bilirubin 0.3 Direct Bilirubin 0.00 Indirect Bilirubin 0.3 Aspartate Amino Transf (AST/SGOT) 16 Alanine Aminotransferase (ALT/SGPT) 15 Alkaline Phosphatase 90 Total Protein 5.4 L Albumin 2.6 L Globulin 2.80 Albumin/Globulin Ratio 0.92 Subjective 24 Hr Interval Summary Free Text/Dictation comfortable at present. no s/s of distress. no specific complaints Exam/Review of Systems Exam Vitals Vital Signs Date Temp Pulse Resp B/P (MAP) Pulse Ox O2 O2 Flow FiO2 Time Delivery Rate 07/27/18 97.7 78 16 129/60 95 Room Air 07:55 (83) 07/25/18 2.0 23:24 Intake and Output 07/26/18 07/26/18 07/27/18 1515:00 23:00 07:00 IntakeIntake Total 1000 ml 420 ml 240 ml OutputOutput Total 300 ml 400 ml 400 ml BalanceBalance 700 ml 20 ml -160 ml Constitutional: alert, oriented, frail Psych: nl mood/affect Head: normocephalic Eyes: nl conjunctiva Neck: supple, non-tender Cardiovascular: regular rate and rhythm Gastrointestinal: soft, non-tender Musculoskeletal: No swelling Neurological: WARDRO[employer] MANAGER II-XII intact, nl mental status, nl speech Skin: other (dressing on left upper back cdi ) Results Results 24hrs Laboratory Tests Test 07/27/18 05:05 White Blood Count 4.5 #L Red Blood Count 3.63 L Hemoglobin 9.2 L Hematocrit 29.5 L Mean Corpuscular Volume 81.3 L Mean Corpuscular Hemoglobin 25.3 L Mean Corpuscular Hemoglobin Concent 31.2 L Red Cell Distribution Width 15.3 H Platelet Count 359 Mean Platelet Volume 9.1 Immature Granulocytes % 0.200 Neutrophils % 71.5 Lymphocytes % 16.6 Monocytes % 10.6 Eosinophils % 0.4 Basophils % 0.7 Nucleated Red Blood Cells % 0.0 Immature Granulocytes # 0.010 Neutrophils # 3.2 Lymphocytes # 0.8 Monocytes # 0.5 Eosinophils # 0.0 Basophils # 0.0 Nucleated Red Blood Cells # 0.0 Sodium Level 138 Potassium Level 3.4 L Chloride Level 106 Carbon Dioxide Level 30 Anion Gap 2 L Blood Urea Nitrogen 14 Creatinine 0.89 Est Glomerular Filtrat Rate mL/min Glucose Level 95 Calcium Level 8.4 Phosphorus Level 2.9 Magnesium Level 1.8 Total Bilirubin 0.3 Direct Bilirubin 0.00 Indirect Bilirubin 0.3 Aspartate Amino Transf (AST/SGOT) 16 Alanine Aminotransferase (ALT/SGPT) 15 Alkaline Phosphatase 90 Total Protein 5.4 L Albumin 2.6 L Globulin 2.80 Albumin/Globulin Ratio 0.92 Medications Medication Current Medications IV Flush (NS 3 ml) 3 ml PER PROTOCOL IV ; Start 07/24/18 at 20:00 Ondansetron HCl (Zofran Tab) 4 mg Q6H PRN PO NAUSEA/VOMITING; Start 07/24/18 at 20:00 Acetaminophen (Tylenol Tab) 650 mg Q6H PRN PO .PAIN 1-3 OR TEMP; Start 07/24/18 at 20:00 Acetaminophen/ Hydrocodone Bitart ([place] (5/325)) 1 tab Q6H PRN PO .MOD PAIN 4- 6; Start 07/24/18 at 20:00 Docusate Sodium (Colace) 100 mg Q12H PRN PO .CONSTIPATION; Start 07/24/18 at 20:00 Bisacodyl (Dulcolax) 5 mg DAILY PRN PO .CONSTIPATION; Start 07/24/18 at 20:00 Heparin Sodium (Porcine) (Heparin (5000 Units/1ml)) 5,000 unit Q8 SC Last administered on 07/27/18at 05:37; Admin Dose 5,000 UNIT; Start 07/24/18 at 22:00 Ferric Sodium Gluconate Complex 125 mg/Sodium Chloride 100 ml @ 100 mls/hr DAILY@1300 IVPB Last administered on 07/26/18at 13:23; Admin Dose 100 MLS/HR; Start 07/25/18 at 16:00; Stop 07/27/18 at 13:59 Aspirin (Halfprin) 81 mg DAILY PO Last administered on 07/27/18at 09:16; Admin Dose 81 MG; Start 07/26/18 at 10:00 Metoprolol Tartrate (Lopressor) 25 mg BID PO Last administered on 07/27/18at 09:16; Admin Dose 25 MG; Start 07/26/18 at 21:00 RONI GLASS NP Jul 27, 2018 11:00
[2018-07-27 12:30] VITALS: BP 116/56; PULSE 76; RESP 16
[2018-07-27] MEDS: SOD FERRIC GLUC COMPLX 125 MG in SOD CHLORIDE 0.9% 100 ML IVPB SCH (13:12)
--- NOTE | 2018-07-27 18:35 | PN ---
Date/Time of Note Date/Time of Note DATE: 07/27/18 TIME: 18:29 Assessment/Plan VTE Prophylaxis Risk score (from Nsg)>0 risk: 6 SCD applied (from Nsg): Yes Pharmacological prophylaxis: heparin Lines/Catheters IV Catheter Type (from Nrsg): Saline Lock Urinary Cath still in place: Yes Reason Cath still needed: other (indicate) (per primary MD) Assessment/Plan Assessment/Plan 83 yo woman with lung mass but no clear spread to other organs on CT of chest, abdomen and pelvis. Path from the lung biopsy is pending. It seems likely that this will be found to be a non-small cell lung cancer. I will check back tomorrow afternoon to see if path is available. If lung cancer is found, genomic studies, like EGFR, ALK, ROS, will be needed also. In the meantime I asked for dietitian to meet with her to see about getting her nutritional deficits addressed. Result Diagram: 07/27/18 0505 07/27/18 0505 Results 24hrs Laboratory Tests Test 07/27/18 05:05 White Blood Count 4.5 #L Red Blood Count 3.63 L Hemoglobin 9.2 L Hematocrit 29.5 L Mean Corpuscular Volume 81.3 L Mean Corpuscular Hemoglobin 25.3 L Mean Corpuscular Hemoglobin Concent 31.2 L Red Cell Distribution Width 15.3 H Platelet Count 359 Mean Platelet Volume 9.1 Immature Granulocytes % 0.200 Neutrophils % 71.5 Lymphocytes % 16.6 Monocytes % 10.6 Eosinophils % 0.4 Basophils % 0.7 Nucleated Red Blood Cells % 0.0 Immature Granulocytes # 0.010 Neutrophils # 3.2 Lymphocytes # 0.8 Monocytes # 0.5 Eosinophils # 0.0 Basophils # 0.0 Nucleated Red Blood Cells # 0.0 Sodium Level 138 Potassium Level 3.4 L Chloride Level 106 Carbon Dioxide Level 30 Anion Gap 2 L Blood Urea Nitrogen 14 Creatinine 0.89 Est Glomerular Filtrat Rate mL/min Glucose Level 95 Calcium Level 8.4 Phosphorus Level 2.9 Magnesium Level 1.8 Total Bilirubin 0.3 Direct Bilirubin 0.00 Indirect Bilirubin 0.3 Aspartate Amino Transf (AST/SGOT) 16 Alanine Aminotransferase (ALT/SGPT) 15 Alkaline Phosphatase 90 Total Protein 5.4 L Albumin 2.6 L Globulin 2.80 Albumin/Globulin Ratio 0.92 Subjective 24 Hr Interval Summary Free Text/Dictation 83 yo woman admitted and found to have lung mass. Biopsy was done 07/25 but pathology is not yet available. She says she is comfortable but is not eating since she prefers [place] food. Exam/Review of Systems Exam Vitals Vital Signs Date Temp Pulse Resp B/P (MAP) Pulse Ox O2 O2 Flow FiO2 Time Delivery Rate 07/27/18 97.8 76 16 116/56 97 12:30 (76) 07/27/18 Room Air 07:55 07/25/18 2.0 23:24 Intake and Output 07/26/18 07/26/18 07/27/18 1515:00 23:00 07:00 IntakeIntake Total 1000 ml 420 ml 240 ml OutputOutput Total 300 ml 400 ml 400 ml BalanceBalance 700 ml 20 ml -160 ml Constitutional: alert, oriented Head: other (bitemporal muscle wasting) Eyes: other (mild pallor) ENMT: other (poor dentition) Respiratory: clear to auscultation Cardiovascular: regular rate and rhythm Gastrointestinal: soft, nl liver, spleen, non-tender Extremities: other (diffusely decreased muscle mass) Results Results 24hrs Laboratory Tests Test 07/27/18 05:05 White Blood Count 4.5 #L Red Blood Count 3.63 L Hemoglobin 9.2 L Hematocrit 29.5 L Mean Corpuscular Volume 81.3 L Mean Corpuscular Hemoglobin 25.3 L Mean Corpuscular Hemoglobin Concent 31.2 L Red Cell Distribution Width 15.3 H Platelet Count 359 Mean Platelet Volume 9.1 Immature Granulocytes % 0.200 Neutrophils % 71.5 Lymphocytes % 16.6 Monocytes % 10.6 Eosinophils % 0.4 Basophils % 0.7 Nucleated Red Blood Cells % 0.0 Immature Granulocytes # 0.010 Neutrophils # 3.2 Lymphocytes # 0.8 Monocytes # 0.5 Eosinophils # 0.0 Basophils # 0.0 Nucleated Red Blood Cells # 0.0 Sodium Level 138 Potassium Level 3.4 L Chloride Level 106 Carbon Dioxide Level 30 Anion Gap 2 L Blood Urea Nitrogen 14 Creatinine 0.89 Est Glomerular Filtrat Rate mL/min Glucose Level 95 Calcium Level 8.4 Phosphorus Level 2.9 Magnesium Level 1.8 Total Bilirubin 0.3 Direct Bilirubin 0.00 Indirect Bilirubin 0.3 Aspartate Amino Transf (AST/SGOT) 16 Alanine Aminotransferase (ALT/SGPT) 15 Alkaline Phosphatase 90 Total Protein 5.4 L Albumin 2.6 L Globulin 2.80 Albumin/Globulin Ratio 0.92 Medications Medication Current Medications IV Flush (NS 3 ml) 3 ml PER PROTOCOL IV ; Start 07/24/18 at 20:00 Ondansetron HCl (Zofran Tab) 4 mg Q6H PRN PO NAUSEA/VOMITING; Start 07/24/18 at 20:00 Acetaminophen (Tylenol Tab) 650 mg Q6H PRN PO .PAIN 1-3 OR TEMP; Start 07/24/18 at 20:00 Acetaminophen/ Hydrocodone Bitart ([place] (5/325)) 1 tab Q6H PRN PO .MOD PAIN 4- 6; Start 07/24/18 at 20:00 Docusate Sodium (Colace) 100 mg Q12H PRN PO .CONSTIPATION; Start 07/24/18 at 20:00 Bisacodyl (Dulcolax) 5 mg DAILY PRN PO .CONSTIPATION; Start 07/24/18 at 20:00 Heparin Sodium (Porcine) (Heparin (5000 Units/1ml)) 5,000 unit Q8 SC Last administered on 07/27/18at 14:24; Admin Dose 5,000 UNIT; Start 07/24/18 at 22:00 Aspirin (Halfprin) 81 mg DAILY PO Last administered on 07/27/18at 09:16; Admin Dose 81 MG; Start 07/26/18 at 10:00 Metoprolol Tartrate (Lopressor) 25 mg BID PO Last administered on 07/27/18at 09:16; Admin Dose 25 MG; Start 07/26/18 at 21:00 MARYANA MURPHY MD Jul 27, 2018 18:35
[2018-07-27 19:43] VITALS: BP 123/60; PULSE 81; RESP 17
[2018-07-27] MEDS ORDERED: hydrALAzine 20 MG INJ IV PRN (20:30)
[2018-07-28 01:46] VITALS: BP 125/59; PULSE 72; RESP 18
[2018-07-28] MEDS: HEPARIN 5,000 UNIT/1 ML VIAL SC SCH ×3 (06:09→21:36)
[2018-07-28 07:42] VITALS: BP 131/61; PULSE 77; RESP 18
[2018-07-28] MEDS: ASPIRIN (EC) 81 MG TAB PO SCH (09:00)
--- NOTE | 2018-07-28 10:34 | PN ---
Date/Time of Note Date/Time of Note DATE: 07/28/18 TIME: 10:29 Assessment/Plan VTE Prophylaxis Risk score (from Ns)>0 risk: 6 SCD applied (from Ns): Yes Pharmacological prophylaxis: heparin Lines/Catheters IV Catheter Type (from [facility]): Saline Lock Urinary Cath still in place: Yes Assessment/Plan Hospital Course Assessment and plan 1. Suspicious soft tissue lung mass on the left -Patient status post CT-guided biopsy on July 25, 2018 -Awaiting biopsy results. -Oncologist following. 2. Hypertension. - Continue on antihypertensives. 3. CAD with coronary artery stents. -It was reported that patient was not on any aspirin or statin medication at home. -Started on statin and aspirin in house 4. Severe peripheral artery disease -Continue on ASA and statin medication -Patient has a history of peripheral stents bilaterally for this 5. T12 compression fracture -Continue with analgesics. -Physical therapy was ordered, however they are requesting for possible brace for patient prior to working with her. - orthopedic consult to evaluate for possible brace for patient 6. Microcytic hypochromic anemia. -Monitor H&H. -Continue with iron supplements 7. Severe protein calorie nutrition -Dietary consult is following. 8. Failure to thrive. -Patient reports living at home by herself. -template layout worker was consulted Disposition plan. Follow-up on biopsy results. ortho consult for possible brace. Awaiting PT eval. Discussed plan of care Dr. Butler Result Diagram: 07/28/18 0520 07/28/18 0520 Results 24hrs Laboratory Tests Test 07/28/18 05:20 White Blood Count 6.0 # Red Blood Count 3.71 L Hemoglobin 9.4 L Hematocrit 30.5 L Mean Corpuscular Volume 82.2 Mean Corpuscular Hemoglobin 25.3 L Mean Corpuscular Hemoglobin Concent 30.8 L Red Cell Distribution Width 15.6 H Platelet Count 377 Mean Platelet Volume 9.6 Immature Granulocytes % 0.300 Neutrophils % 77.9 H Lymphocytes % 13.0 L Monocytes % 7.8 Eosinophils % 0.5 Basophils % 0.5 Nucleated Red Blood Cells % 0.0 Immature Granulocytes # 0.020 Neutrophils # 4.7 Lymphocytes # 0.8 Monocytes # 0.5 Eosinophils # 0.0 Basophils # 0.0 Nucleated Red Blood Cells # 0.0 Sodium Level 140 Potassium Level 3.8 Chloride Level 104 Carbon Dioxide Level 30 Anion Gap 6 Blood Urea Nitrogen 18 Creatinine 0.84 Est Glomerular Filtrat Rate mL/min Glucose Level 100 Calcium Level 8.4 Phosphorus Level 3.0 Magnesium Level 1.7 Total Bilirubin 0.4 Direct Bilirubin 0.00 Indirect Bilirubin 0.4 Aspartate Amino Transf (AST/SGOT) 20 Alanine Aminotransferase (ALT/SGPT) 23 Alkaline Phosphatase 97 Total Protein 5.9 L Albumin 2.6 L Globulin 3.30 H Albumin/Globulin Ratio 0.78 Subjective 24 Hr Interval Summary Free Text/Dictation no s/s of distress. comfortable at present Exam/Review of Systems Exam Vitals Vital Signs Date Temp Pulse Resp B/P (MAP) Pulse Ox O2 O2 Flow FiO2 Time Delivery Rate 07/28/18 99.1 77 18 131/61 94 07:42 (84) 07/27/18 Room Air 07:55 07/25/18 2.0 23:24 Intake and Output 07/27/18 07/27/18 07/28/18 1515:00 23:00 07:00 IntakeIntake Total 1060 ml 480 ml OutputOutput Total 500 ml BalanceBalance 1060 ml 480 ml -500 ml Exam Constitutional: alert, oriented, frail Psych: nl mood/affect Head: normocephalic Eyes: nl conjunctiva Neck: supple, non-tender Cardiovascular: regular rate and rhythm Gastrointestinal: soft, non-tender Musculoskeletal: No swelling Neurological: LUMBER STRAIGHTENED II-XII intact, nl mental status, nl speech Skin: other (dressing on left upper back cdi ) Results Results 24hrs Laboratory Tests Test 07/28/18 05:20 White Blood Count 6.0 # Red Blood Count 3.71 L Hemoglobin 9.4 L Hematocrit 30.5 L Mean Corpuscular Volume 82.2 Mean Corpuscular Hemoglobin 25.3 L Mean Corpuscular Hemoglobin Concent 30.8 L Red Cell Distribution Width 15.6 H Platelet Count 377 Mean Platelet Volume 9.6 Immature Granulocytes % 0.300 Neutrophils % 77.9 H Lymphocytes % 13.0 L Monocytes % 7.8 Eosinophils % 0.5 Basophils % 0.5 Nucleated Red Blood Cells % 0.0 Immature Granulocytes # 0.020 Neutrophils # 4.7 Lymphocytes # 0.8 Monocytes # 0.5 Eosinophils # 0.0 Basophils # 0.0 Nucleated Red Blood Cells # 0.0 Sodium Level 140 Potassium Level 3.8 Chloride Level 104 Carbon Dioxide Level 30 Anion Gap 6 Blood Urea Nitrogen 18 Creatinine 0.84 Est Glomerular Filtrat Rate mL/min Glucose Level 100 Calcium Level 8.4 Phosphorus Level 3.0 Magnesium Level 1.7 Total Bilirubin 0.4 Direct Bilirubin 0.00 Indirect Bilirubin 0.4 Aspartate Amino Transf (AST/SGOT) 20 Alanine Aminotransferase (ALT/SGPT) 23 Alkaline Phosphatase 97 Total Protein 5.9 L Albumin 2.6 L Globulin 3.30 H Albumin/Globulin Ratio 0.78 Medications Medication Current Medications IV Flush (NS 3 ml) 3 ml PER PROTOCOL IV ; Start 07/24/18 at 20:00 Ondansetron HCl (Zofran Tab) 4 mg Q6H PRN PO NAUSEA/VOMITING; Start 07/24/18 at 20:00 Acetaminophen (Tylenol Tab) 650 mg Q6H PRN PO .PAIN 1-3 OR TEMP; Start 07/24/18 at 20:00 Acetaminophen/ Hydrocodone Bitart ([place] (5/325)) 1 tab Q6H PRN PO .MOD PAIN 4- 6; Start 07/24/18 at 20:00 Docusate Sodium (Colace) 100 mg Q12H PRN PO .CONSTIPATION; Start 07/24/18 at 20:00 Bisacodyl (Dulcolax) 5 mg DAILY PRN PO .CONSTIPATION; Start 07/24/18 at 20:00 Heparin Sodium (Porcine) (Heparin (5000 Units/1ml)) 5,000 unit Q8 SC Last administered on 07/28/18at 06:09; Admin Dose 5,000 UNIT; Start 07/24/18 at 22:00 Aspirin (Halfprin) 81 mg DAILY PO Last administered on 07/27/18at 09:16; Admin Dose 81 MG; Start 07/26/18 at 10:00 Metoprolol Tartrate (Lopressor) 25 mg BID PO Last administered on 07/27/18at 21:16; Admin Dose 25 MG; Start 07/26/18 at 21:00 Hydralazine HCl (Apresoline) 10 mg Q4H PRN IV FOR SBP>170; Start 07/27/18 at 20:30 RONI GLASS NP Jul 28, 2018 10:34
[2018-07-28] MEDS: METOPROLOL 25 MG TAB PO SCH ×2 (10:41→21:34)
[2018-07-28 10:42] VITALS: BP 128/58; PULSE 82
[2018-07-28 14:25] VITALS: BP 140/65; PULSE 75; RESP 18
--- NOTE | 2018-07-28 18:06 | PN ---
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 The lung lesion is large and I would not expect that it could be surgically removed without great risk of morbidity and mortality. She says that at her age, she would refuse surgery even if it were suggested. We then discussed that final pathology, including genomic studies, are pending. This could help guide us in the choice of medical treatment for her cancer. While we await these results, I encouraged focus on nutrition. She is emaciated and has lost at least 20 pounds by her reckoning. Further recommendations when path is ready. Also note that a brace is being obtained to provide support for the T12 compression fracture. When it is here, mobilization can be encouraged. Result Diagram: 07/28/18 0520 07/28/18 0520 Results 24hrs Laboratory Tests Test 07/28/18 05:20 White Blood Count 6.0 # Red Blood Count 3.71 L Hemoglobin 9.4 L Hematocrit 30.5 L Mean Corpuscular Volume 82.2 Mean Corpuscular Hemoglobin 25.3 L Mean Corpuscular Hemoglobin Concent 30.8 L Red Cell Distribution Width 15.6 H Platelet Count 377 Mean Platelet Volume 9.6 Immature Granulocytes % 0.300 Neutrophils % 77.9 H Lymphocytes % 13.0 L Monocytes % 7.8 Eosinophils % 0.5 Basophils % 0.5 Nucleated Red Blood Cells % 0.0 Immature Granulocytes # 0.020 Neutrophils # 4.7 Lymphocytes # 0.8 Monocytes # 0.5 Eosinophils # 0.0 Basophils # 0.0 Nucleated Red Blood Cells # 0.0 Sodium Level 140 Potassium Level 3.8 Chloride Level 104 Carbon Dioxide Level 30 Anion Gap 6 Blood Urea Nitrogen 18 Creatinine 0.84 Est Glomerular Filtrat Rate mL/min Glucose Level 100 Calcium Level 8.4 Phosphorus Level 3.0 Magnesium Level 1.7 Total Bilirubin 0.4 Direct Bilirubin 0.00 Indirect Bilirubin 0.4 Aspartate Amino Transf (AST/SGOT) 20 Alanine Aminotransferase (ALT/SGPT) 23 Alkaline Phosphatase 97 Total Protein 5.9 L Albumin 2.6 L Globulin 3.30 H Albumin/Globulin Ratio 0.78 Subjective 24 Hr Interval Summary Free Text/Dictation Pt is comfortably lying in bed today. Exam/Review of Systems Exam Vitals Vital Signs Date Temp Pulse Resp B/P (MAP) Pulse Ox O2 O2 Flow FiO2 Time Delivery Rate 07/28/18 98.6 75 18 140/65 96 14:25 (90) 07/27/18 Room Air 07:55 07/25/18 2.0 23:24 Intake and Output 07/27/18 07/27/18 07/28/18 1515:00 23:00 07:00 IntakeIntake Total 1060 ml 480 ml OutputOutput Total 500 ml BalanceBalance 1060 ml 480 ml -500 ml Head: other (bitemporal muscle wasting) Eyes: other (mild pallor) Neck: supple Respiratory: clear to auscultation, diminished breath sounds Cardiovascular: regular rate and rhythm Gastrointestinal: soft, non-tender Extremities: other (depleted muscle mass) Lymph: nl lymph nodes Results Results 24hrs Laboratory Tests Test 07/28/18 05:20 White Blood Count 6.0 # Red Blood Count 3.71 L Hemoglobin 9.4 L Hematocrit 30.5 L Mean Corpuscular Volume 82.2 Mean Corpuscular Hemoglobin 25.3 L Mean Corpuscular Hemoglobin Concent 30.8 L Red Cell Distribution Width 15.6 H Platelet Count 377 Mean Platelet Volume 9.6 Immature Granulocytes % 0.300 Neutrophils % 77.9 H Lymphocytes % 13.0 L Monocytes % 7.8 Eosinophils % 0.5 Basophils % 0.5 Nucleated Red Blood Cells % 0.0 Immature Granulocytes # 0.020 Neutrophils # 4.7 Lymphocytes # 0.8 Monocytes # 0.5 Eosinophils # 0.0 Basophils # 0.0 Nucleated Red Blood Cells # 0.0 Sodium Level 140 Potassium Level 3.8 Chloride Level 104 Carbon Dioxide Level 30 Anion Gap 6 Blood Urea Nitrogen 18 Creatinine 0.84 Est Glomerular Filtrat Rate mL/min Glucose Level 100 Calcium Level 8.4 Phosphorus Level 3.0 Magnesium Level 1.7 Total Bilirubin 0.4 Direct Bilirubin 0.00 Indirect Bilirubin 0.4 Aspartate Amino Transf (AST/SGOT) 20 Alanine Aminotransferase (ALT/SGPT) 23 Alkaline Phosphatase 97 Total Protein 5.9 L Albumin 2.6 L Globulin 3.30 H Albumin/Globulin Ratio 0.78 Medications Medication Current Medications IV Flush (NS 3 ml) 3 ml PER PROTOCOL IV ; Start 07/24/18 at 20:00 Ondansetron HCl (Zofran Tab) 4 mg Q6H PRN PO NAUSEA/VOMITING; Start 07/24/18 at 20:00 Acetaminophen (Tylenol Tab) 650 mg Q6H PRN PO .PAIN 1-3 OR TEMP; Start 07/24/18 at 20:00 Acetaminophen/ Hydrocodone Bitart ([place] (5/325)) 1 tab Q6H PRN PO .MOD PAIN 4- 6; Start 07/24/18 at 20:00 Docusate Sodium (Colace) 100 mg Q12H PRN PO .CONSTIPATION; Start 07/24/18 at 20:00 Bisacodyl (Dulcolax) 5 mg DAILY PRN PO .CONSTIPATION; Start 07/24/18 at 20:00 Heparin Sodium (Porcine) (Heparin (5000 Units/1ml)) 5,000 unit Q8 SC Last admi nistered on 07/28/18at 14:30; Admin Dose 5,000 UNIT; Start 07/24/18 at 22:00 Aspirin (Halfprin) 81 mg DAILY PO Last administered on 07/27/18at 09:16; Admin Dose 81 MG; Start 07/26/18 at 10:00 Metoprolol Tartrate (Lopressor) 25 mg BID PO Last administered on 07/28/18at 10:41; Admin Dose 25 MG; Start 07/26/18 at 21:00 Hydralazine HCl (Apresoline) 10 mg Q4H PRN IV FOR SBP>170; Start 07/27/18 at 20:30 MARYANA MURPHY MD Jul 28, 2018 18:06
[2018-07-28 20:36] VITALS: BP 127/58; PULSE 80; RESP 17
[2018-07-29 01:22] VITALS: BP 149/70; PULSE 73; RESP 18
[2018-07-29] MEDS: HEPARIN 5,000 UNIT/1 ML VIAL SC SCH ×3 (05:21→21:52)
[2018-07-29 07:35] VITALS: BP 144/71; PULSE 80; RESP 14
[2018-07-29] MEDS: MEGESTROL 40 MG TAB PO SCH ×4 (09:00→21:44)
[2018-07-29] MEDS: ASPIRIN (EC) 81 MG TAB PO SCH (09:33)
[2018-07-29] MEDS: METOPROLOL 25 MG TAB PO SCH ×2 (09:34→21:44)
--- NOTE | 2018-07-29 10:01 | CONS ---
DATE OF ADMISSION: 07/25/2018 DATE OF CONSULTATION: 07/28/2018 HISTORY OF PRESENT ILLNESS: The patient is an 83-year-old female who was admitted on 07/25/2018 when she was brought into the emergency room because of the possibility of dehydration. The initial eval uation revealed the presence of a mass in the lung with some scattered nodules suggestive of possible malignancy. She also found to have a fracture involving the vertebral body of T12 and orthopedic dunn rgery was consulted. PAST MEDICAL HISTORY: She is known to have hypertension and hyperlipidemia. On inquiring, she claims that she had a ground-level fall about 3 to 4 weeks ago; however, she is not sure about timing and she claims that she did not have any back pain after the fall and she does not have any pain involving her back at this time. She denies any radiation of the pain to the lower ex tremities. She claims that she has been losing weight lately. PHYSICAL EXAMINATION: My examination revealed 83-year-old female who seems to be alert and oriented. She does not have any pain involving her back and does not have any radiation of the pain to her lo wer extremities. She denies any numbness or tingling involving her lower extremities. There was no local tenderness at the thoracolumbar junction or over the lumbar area. There was no obvious motor w eakness or sensory changes in the distribution of the lumbosacral spinal nerve. Straight leg raising was negative up to [address] scan of the spine was reviewed, and it shows a fracture involving the vertebral body of T12 with m inimal retropulsion. DIAGNOSTIC IMPRESSION: Fracture of the vertebral body of T12 without any retropulsion and without an y signs of myelopathy or radiculopathy, age uncertain with possibility of a pathologic fracture. RECOMMENDATIONS FOR MANAGEMENT: Asymptomatic fracture involving T12. If brace protection is conside red then GUERRA brace is recommended and this has been ordered and further ortho followup will be on a p.r.n. basis. Dictated By: SEAN FOSTER MD IK/NTS Conf#: [id number] DID#: [id number] CC: ALLY VALLEJO MD; SEAN FOSTER MD;*EndCC*
--- NOTE | 2018-07-29 10:47 | PN ---
Date/Time of Note Date/Time of Note DATE: 07/29/18 TIME: 10:44 Assessment/Plan VTE Prophylaxis Risk score (from Ns)>0 risk: 8 SCD applied (from Ns): Yes Pharmacological prophylaxis: heparin Lines/Catheters IV [facility]from [facility] Saline Lock Urinary Cath still in place: Yes Assessment/Plan Hospital Course Assessment and plan 1. Suspicious soft tissue lung mass on the left -Patient status post CT-guided biopsy on July 25, 2018 -Awaiting biopsy results. -Oncologist following. 2. Hypertension. - Continue on antihypertensives. 3. CAD with coronary artery stents. -It was reported that patient was not on any aspirin or statin medication at home. -Started on statin and aspirin in house 4. Severe peripheral artery disease -Continue on ASA and statin medication -Patient has a history of peripheral stents bilaterally for this 5. T12 compression fracture -Continue with analgesics. -Physical therapy was ordered, however they are requesting for possible brace for patient prior to working with her. - orthopedic consulted 6. Microcytic hypochromic anemia. -Monitor H&H. -Continue with iron supplements 7. Severe protein calorie nutrition -Dietary consult is following. 8. Failure to thrive. -Patient reports living at home by herself. -central supply worker was consulted Disposition plan. Follow-up on biopsy results. Patient did receive back b race today. Awaiting PT eval. Discussed plan of care Dr. Butler Result Diagram: 07/28/1851907/28/18 0520 Subjective 24 Hr Interval Summary Free Text/Dictation comfortable no s/s of distress Exam/Review of Systems Exam Vitals Vital Signs Date Temp Pulse Resp B/P (MAP) Pulse Ox O2 O2 Flow FiO2 Time Delivery Rate 07/29/18 97.5 80 14 144/71 97 07:35 (95) 07/27/18 Room Air 07:55 07/25/18 2.0 23:24 Intake and Output 07/28/18 07/28/18 07/29/18 1515:00 23:00 07:00 IntakeIntake Total 250 ml 740 ml OutputOutput Total 950 ml 400 ml BalanceBalance 250 ml -210 ml -400 ml Exam Constitutional: alert, oriented, frail Psych: nl mood/affect Head: normocephalic Eyes: nl conjunctiva Neck: supple, non-tender Cardiovascular: regular rate and rhythm Gastrointestinal: soft, non-tender Musculoskeletal: No swelling Neurological: RAMP SUPERVISOR II-XII intact, nl mental status, nl speech Skin: other (dressing on left upper back cdi ) Medications Medication Current Medications IV Flush (NS 3 ml) 3 ml PER PROTOCOL IV ; Start 07/24/18 at 20:00 Ondansetron HCl (Zofran Tab) 4 mg Q6H PRN PO NAUSEA/VOMITING; Start 07/24/18 at 20:00 Acetaminophen (Tylenol Tab) 650 mg Q6H PRN PO .PAIN 1-3 OR TEMP; Start 07/24/18 at 20:00 Acetaminophen/ Hydrocodone Bitart ([place] (5/325)) 1 tab Q6H PRN PO .MOD PAIN 4- 6; Start 07/24/18 at 20:00 Docusate Sodium (Colace) 100 mg Q12H PRN PO .CONSTIPATION; Start 07/24/18 at 20:00 Bisacodyl (Dulcolax) 5 mg DAILY PRN PO .CONSTIPATION; Start 07/24/18 at 20:00 Heparin Sodium (Porcine) (Heparin (5000 Units/1ml)) 5,000 unit Q8 SC Last administered on 07/29/18at 05:21; Admin Dose 5,000 UNIT; Start 07/24/18 at 22:00 Aspirin (Halfprin) 81 mg DAILY PO Last administered on 07/29/18at 09:33; Admin Dose 81 MG; Start 07/26/18 at 10:00 Metoprolol Tartrate (Lopressor) 25 mg BID PO Last administered on 07/29/18at 09:34; Admin Dose 25 MG; Start 07/26/18 at 21:00 Hydralazine HCl (Apresoline) 10 mg Q4H PRN IV FOR SBP>170; Start 07/27/18 at 20:30 Megestrol Acetate (Megace) 40 mg QID PO ; Start 07/29/18 at 09:00 RONI GLASS NP Jul 29, 2018 10:46
[2018-07-29 14:49] VITALS: BP 117/57; PULSE 78; RESP 16
--- NOTE | 2018-07-29 17:12 | QN ---
Documentation Comment Pt is sleeping. I am awaiting the genomic studies. I would focus on nutrition while we await those results, which are needed to decide the best course of treatment. MARYANA MURPHY MD Jul 29, 2018 17:12
[2018-07-29 19:38] VITALS: BP 129/60; PULSE 83; RESP 18
[2018-07-30 02:00] VITALS: BP 140/71; PULSE 71; RESP 18
[2018-07-30] MEDS: HEPARIN 5,000 UNIT/1 ML VIAL SC SCH ×3 (05:57→21:36)
[2018-07-30 08:01] VITALS: BP 163/76; PULSE 74; RESP 16
--- NOTE | 2018-07-30 08:48 | PN ---
Date/Time of Note Date/Time of Note DATE: 07/30/18 TIME: 08:43 Assessment/Plan VTE Prophylaxis Risk score (from Ns)>0 risk: 6 SCD applied (from Nsg): Yes Pharmacological prophylaxis: heparin Lines/Catheters IV Catheter Type (from Nrsg): Saline Lock Urinary Cath still in place: Yes Assessment/Plan Hospital Course Assessment and plan 1. 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 Hypertension. - Continue on antihypertensives. 3. CAD with coronary artery stents. -It was reported that patient was not on any aspirin or statin medication at home. -Started on statin and aspirin in house 4. Severe peripheral artery disease -Continue on ASA and statin medication -Patient has a history of peripheral stents bilaterally for this 5. T12 compression fracture -Continue with analgesics. -Physical therapy - continue - had ortho consultation 6. Microcytic hypochromic anemia. -Monitor H&H. -Continue with iron supplements 7. Severe protein calorie nutrition -Dietary consult is following. 8. Failure to thrive. -Patient reports living at home by herself. -damper worker was consulted Disposition plan. continue PT. f/u oncologist for transition to outpatient. senior case manager to follow for ARU vs. snf Discussed plan of care Dr. Butler Result Diagram: 07/28/1851907/28/18 0520 Subjective 24 Hr Interval Summary Free Text/Dictation comfortable at present. no s/s of distress. Exam/Review of Systems Exam Vitals Vital Signs Date Temp Pulse Resp B/P (MAP) Pulse Ox O2 O2 Flow FiO2 Time Delivery Rate 07/30/18 98.0 74 16 163/76 97 Room Air 08:01 (105) Intake and Output 07/29/18 07/29/18 07/30/18 1414:59 22:59 06:59 IntakeIntake Total 620 ml 320 ml OutputOutput Total 400 ml BalanceBalance 620 ml -80 ml Exam Constitutional: alert, oriented, frail Psych: nl mood/affect Head: normocephalic Eyes: nl conjunctiva Neck: supple, non-tender Cardiovascular: regular rate and rhythm Gastrointestinal: soft, non-tender Musculoskeletal: No swelling Neurological: LEARNING DESIGN SPECIALIST II-XII intact, nl mental status, nl speech Medications Medication Current Medications IV Flush (NS 3 ml) 3 ml PER PROTOCOL IV ; Start 07/24/18 at 20:00 Ondansetron HCl (Zofran Tab) 4 mg Q6H PRN PO NAUSEA/VOMITING; Start 07/24/18 at 20:00 Acetaminophen (Tylenol Tab) 650 mg Q6H PRN PO .PAIN 1-3 OR TEMP; Start 07/24/18 at 20:00 Acetaminophen/ Hydrocodone Bitart ([place] (5/325)) 1 tab Q6H PRN PO .MOD PAIN 4- 6; Start 07/24/18 at 20:00 Docusate Sodium (Colace) 100 mg Q12H PRN PO .CONSTIPATION; Start 07/24/18 at 20:00 Bisacodyl (Dulcolax) 5 mg DAILY PRN PO .CONSTIPATION; Start 07/24/18 at 20:00 Heparin Sodium (Porcine) (Heparin (5000 Units/1ml)) 5,000 unit Q8 SC Last administered on 07/30/18 05:57; Admin Dose 5,000 UNIT; Start 07/24/18 at 22:00 Aspirin (Halfprin) 81 mg DAILY PO Last administered on 07/29/18 09:33; Admin Dose 81 MG; Start 07/26/18 at 10:00 Metoprolol Tartrate (Lopressor) 25 mg BID PO Last administered on 07/29/18at 21:44; Admin Dose 25 MG; Start 07/26/18 at 21:00 Hydralazine HCl (Apresoline) 10 mg Q4H PRN IV FOR SBP>170; Start 07/27/18 at 20:30 Megestrol Acetate (Megace) 40 mg QID PO Last administered on 07/29/18at 21:44; Admin Dose 40 MG; Start 07/29/18 at 09:00 RONI GLASS NP Jul 30, 2018 08:48
[2018-07-30] MEDS: ASPIRIN (EC) 81 MG TAB PO SCH (08:55)
[2018-07-30] MEDS: MEGESTROL 40 MG TAB PO SCH ×4 (08:55→21:35)
[2018-07-30] MEDS: METOPROLOL 25 MG TAB PO SCH ×2 (08:56→21:35)
--- NOTE | 2018-07-30 14:27 | PN ---
Date/Time of Note Date/Time of Note DATE: 07/30/18 TIME: 14:22 Assessment/Plan VTE Prophylaxis Risk score (from Nsg)>0 risk: 6 SCD applied (from Nsg): Yes Pharmacological prophylaxis: heparin Lines/Catheters IV Catheter Type (from Nrsg): Saline Lock Urinary Cath still in place: Yes Reason Cath still needed: other (indicate) (bedbound) Assessment/Plan Assessment/Plan Pt is in bed most of the time. Pathology and genomic studies are pending. At this time, I would focus on nutritional support and trying to ambulate. She says she may stay with a friend when she leaves the hospital, which is a good idea given the poor performance status. It is not clear that her friend knows what poor condition she is in and how much support would be needed. The genomic studies are not likely to be available until next week. Result Diagram: 07/30/18 0936 07/30/18 0936 Results 24hrs Laboratory Tests Test 07/30/18 09:36 White Blood Count 6.9 Red Blood Count 4.05 L Hemoglobin 10.3 L Hematocrit 33.2 L Mean Corpuscular Volume 82.0 Mean Corpuscular Hemoglobin 25.4 L Mean Corpuscular Hemoglobin Concent 31.0 L Red Cell Distribution Width 15.6 H Platelet Count 441 H Mean Platelet Volume 9.2 Immature Granulocytes % 0.400 Neutrophils % 81.3 H Lymphocytes % 9.5 L Monocytes % 8.0 Eosinophils % 0.4 Basophils % 0.4 Nucleated Red Blood Cells % 0.0 Immature Granulocytes # 0.030 Neutrophils # 5.6 Lymphocytes # 0.7 L Monocytes # 0.6 Eosinophils # 0.0 Basophils # 0.0 Nucleated Red Blood Cells # 0.0 Sodium Level 139 Potassium Level 3.6 Chloride Level 105 Carbon Dioxide Level 27 Anion Gap 7 Blood Urea Nitrogen 14 Creatinine 0.85 Est Glomerular Filtrat Rate mL/min Glucose Level 195 Calcium Level 8.6 Subjective 24 Hr Interval Summary Free Text/Dictation Pt i resting quietly in bed. Exam/Review of Systems Exam Vitals Vital Signs Date Temp Pulse Resp B/P (MAP) Pulse Ox O2 O2 Flow FiO2 Time Delivery Rate 07/30/18 98.0 74 16 163/76 97 Room Air 08:01 (105) Intake and Output 07/29/18 07/29/18 07/30/18 1515:00 23:00 07:00 IntakeIntake Total 620 ml 320 ml OutputOutput Total 400 ml BalanceBalance 620 ml -80 ml Head: normocephalic Eyes: other (mild pallor) ENMT: nl external ears & nose Respiratory: clear to auscultation Cardiovascular: regular rate and rhythm Gastrointestinal: soft, non-tender Results Results 24hrs Laboratory Tests Test 07/30/18 09:36 White Blood Count 6.9 Red Blood Count 4.05 L Hemoglobin 10.3 L Hematocrit 33.2 L Mean Corpuscular Volume 82.0 Mean Corpuscular Hemoglobin 25.4 L Mean Corpuscular Hemoglobin Concent 31.0 L Red Cell Distribution Width 15.6 H Platelet Count 441 H Mean Platelet Volume 9.2 Immature Granulocytes % 0.400 Neutrophils % 81.3 H Lymphocytes % 9.5 L Monocytes % 8.0 Eosinophils % 0.4 Basophils % 0.4 Nucleated Red Blood Cells % 0.0 Immature Granulocytes # 0.030 Neutrophils # 5.6 Lymphocytes # 0.7 L Monocytes # 0.6 Eosinophils # 0.0 Basophils # 0.0 Nucleated Red Blood Cells # 0.0 Sodium Level 139 Potassium Level 3.6 Chloride Level 105 Carbon Dioxide Level 27 Anion Gap 7 Blood Urea Nitrogen 14 Creatinine 0.85 Est Glomerular Filtrat Rate mL/min Glucose Level 195 Calcium Level 8.6 Medications Medication Current Medications IV Flush (NS 3 ml) 3 ml PER PROTOCOL IV ; Start 07/24/18 at 20:00 Ondansetron HCl (Zofran Tab) 4 mg Q6H PRN PO NAUSEA/VOMITING; Start 07/24/18 at 20:00 Acetaminophen (Tylenol Tab) 650 mg Q6H PRN PO .PAIN 1-3 OR TEMP; Start 07/24/18 at 20:00 Acetaminophen/ Hydrocodone Bitart ([place] (5/325)) 1 tab Q6H PRN PO .MOD PAIN 4- 6; Start 07/24/18 at 20:00 Docusate Sodium (Colace) 100 mg Q12H PRN PO .CONSTIPATION; Start 07/24/18 at 20:00 Bisacodyl (Dulcolax) 5 mg DAILY PRN PO .CONSTIPATION; Start 07/24/18 at 20:00 Heparin Sodium (Porcine) (Heparin (5000 Units/1ml)) 5,000 unit Q8 SC Last administered on 07/30/18 05:57; Admin Dose 5,000 UNIT; Start 07/24/18 at 22:00 Aspirin (Halfprin) 81 mg DAILY PO Last administered on 07/29/18 09:33; Admin Dose 81 MG; Start 07/26/18 at 10:00 Metoprolol Tartrate (Lopressor) 25 mg BID PO Last administered on 07/30/18 08:56; Admin Dose 25 MG; Start 07/26/18 at 21:00 Hydralazine HCl (Apresoline) 10 mg Q4H PRN IV FOR SBP>170; Start 07/27/18 at 20:30 Megestrol Acetate (Megace) 40 mg QID PO Last administered on 07/30/18 13:00; Admin Dose 40 MG; Start 07/29/18 at 09:00 MARYANA MURPHY MD Jul 30, 2018 14:27
[2018-07-30 14:51] VITALS: BP 135/63; PULSE 80; RESP 18
[2018-07-30 20:00] VITALS: BP 132/65; PULSE 87; RESP 18
[2018-07-31 02:00] VITALS: BP 112/64; PULSE 80; RESP 18
[2018-07-31] MEDS: HEPARIN 5,000 UNIT/1 ML VIAL SC SCH ×3 (06:24→21:35)
[2018-07-31 07:34] VITALS: BP 162/77; PULSE 78; RESP 16
[2018-07-31] MEDS: ASPIRIN (EC) 81 MG TAB PO SCH (09:00)
[2018-07-31] MEDS: METOPROLOL 25 MG TAB PO SCH ×2 (09:15→21:32)
[2018-07-31] MEDS: MEGESTROL 40 MG TAB PO SCH ×4 (09:15→21:32)
--- NOTE | 2018-07-31 11:08 | PN ---
Date/Time of Note Date/Time of Note DATE: 07/31/18 TIME: 11:07 Assessment/Plan VTE Prophylaxis Risk score (from Ns)>0 risk: 6 SCD applied (from Ns): Yes Pharmacological prophylaxis: heparin Lines/Catheters IV [facility]from [facility] Saline Lock Urinary Cath still in place: Yes Assessment/Plan Hospital Course Assessment and plan 1. 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 Hypertension. - Continue on antihypertensives. 3. CAD with coronary artery stents. -It was reported that patient was not on any aspirin or statin medication at home. -Started on statin and aspirin in house 4. Severe peripheral artery disease -Continue on ASA and statin medication -Patient has a history of peripheral stents bilaterally for this 5. T12 compression fracture -Continue with analgesics. -Physical therapy - continue - had ortho consultation 6. Microcytic hypochromic anemia. -Monitor H&H. -Continue with iron supplements 7. Severe protein calorie nutrition -Dietary consult is following. 8. Failure to thrive. -Patient reports living at home by herself. -ball worker was consulted Disposition plan. f/u pathology/genomic studies. Plan to transfer to ARU pending eval Discussed plan of care Dr. Butler Result Diagram: 07/30/1836 07/30/18 0936 Subjective 24 Hr Interval Summary Free Text/Dictation comfortable at present. no specific complaints Exam/Review of Systems Exam Vitals Vital Signs Date Temp Pulse Resp B/P (MAP) Pulse Ox O2 O2 Flow FiO2 Time Delivery Rate 07/31/18 97.5 78 16 162/77 94 07:34 (105) 07/31/18 Room Air 02:00 Intake and Output 07/30/18 07/30/18 07/31/18 1414:59 22:59 06:59 IntakeIntake Total 360 ml 240 ml 480 ml OutputOutput Total 400 ml 500 ml 450 ml BalanceBalance -40 ml -260 ml 30 ml Exam Constitutional: alert, oriented, frail Psych: nl mood/affect Head: normocephalic Eyes: nl conjunctiva Neck: supple, non-tender Cardiovascular: regular rate and rhythm Gastrointestinal: soft, non-tender Musculoskeletal: No swelling Neurological: PHOSPHORIC ACID OPERATOR II-XII intact, nl mental status, nl speech Medications Medication Current Medications IV Flush (NS 3 ml) 3 ml PER PROTOCOL IV ; Start 07/24/18 at 20:00 Ondansetron HCl (Zofran Tab) 4 mg Q6H PRN PO NAUSEA/VOMITING; Start 07/24/18 at 20:00 Acetaminophen (Tylenol Tab) 650 mg Q6H PRN PO .PAIN 1-3 OR TEMP; Start 07/24/18 at 20:00 Acetaminophen/ Hydrocodone Bitart ([place] (5/325)) 1 tab Q6H PRN PO .MOD PAIN 4- 6; Start 07/24/18 at 20:00 Docusate Sodium (Colace) 100 mg Q12H PRN PO .CONSTIPATION; Start 07/24/18 at 20:00 Bisacodyl (Dulcolax) 5 mg DAILY PRN PO .CONSTIPATION; Start 07/24/18 at 20:00 Heparin Sodium (Porcine) (Heparin (5000 Units/1ml)) 5,000 unit Q8 SC Last administered on 07/31/18at 06:24; Admin Dose 5,000 UNIT; Start 07/24/18 at 22:00 Aspirin (Halfprin) 81 mg DAILY PO Last administered on 07/29/18at 09:33; Admin Dose 81 MG; Start 07/26/18 at 10:00 Metoprolol Tartrate (Lopressor) 25 mg BID PO Last administered on 07/31/18at 09:15; Admin Dose 25 MG; Start 07/26/18 at 21:00 Hydralazine HCl (Apresoline) 10 mg Q4H PRN IV FOR SBP>170; Start 07/27/18 at 20:30 Megestrol Acetate (Megace) 40 mg QID PO Last administered on 07/31/18at 09:15; Admin Dose 40 MG; Start 07/29/18 at 09:00 RONI GLASS NP Jul 31, 2018 11:08
[2018-07-31 15:11] VITALS: BP 124/60; PULSE 83; RESP 17
--- NOTE | 2018-07-31 15:40 | PN ---
DATE: 07/31/2018 SUBJECTIVE: The patient states that she is feeling well. She has no complaints of chest pain or cou gh. Denies shortness of breath. No pleuritic chest pain. No hemoptysis. OBJECTIVE: GENERAL: The patient is a well-developed, but thin and frail-appearing female who is in no acute dis tress. VITAL SIGNS: Temperature 97.5 orally, pulse is 78 per minute regular, respirations 16, blood pressur e 162/77 and pulse oximetry 94% on room air. SKIN: No ecchymoses, no petechiae or rashes, but poor skin turgor. HEENT: Normocephalic. No evidence of trauma. Pupils are equal, round, react to light and accommoda tion. Sclerae are nonicteric. Oral mucosa is moist without lesions. Tongue is well papillated. No gingival hyperplasia. NECK: Supple. No jugular venous distention or thyroid enlargement. CHEST: Some decreased breath sounds on the left side as compared to the right, but no tubular breath sounds. No rhonchi, wheezes or rubs. There is a pacemaker in place. NODES: No palpable lymphadenopathy in lymph node bearing area. HEART: Regular sinus rhythm. No S3, S4 or murmurs. No rubs. ABDOMEN: Soft. No masses, no ascites. EXTREMITIES: Good range of motion. No clubbing, edema or cyanosis. NEUROLOGIC: Normal except for generalized weakness. No focal neurologic abnormalities. ASSESSMENT: 1. Adenocarcinoma of the left upper lobe, moderately differentiated. 2. Hypertension. 3. Coronary artery disease. 4. Peripheral artery disease. 5. Anemia. DISCUSSION: As noted, the patient has been diagnosed with moderately differentiated adenocarcinoma. It is highly unlikely this would be resectable even if the patient could tolerate surgery. Genomic studies are pending in order to determine whether or not there may be superintendent drivers mutation which m ay allow the patient to receive targeted therapy rather than any type of aggressive chemotherapy if s he even wishes any therapy. The patient, as mentioned, does have anemia. There is microcytosis, hypochromasia and the iron studi es are consistent with both some degree of iron deficiency and anemia of chronic disease. Dictated By: VALERIE HINTON MD SR/NTS Conf#: [id number] DID#: [id number] CC: SEAN FOSTER MD; ALLY VALLEJO MD;*[facility]*
[2018-07-31 20:10] VITALS: BP 114/58; PULSE 85; RESP 18
[2018-08-01 01:56] VITALS: BP 133/63; PULSE 74; RESP 16
[2018-08-01] MEDS: HEPARIN 5,000 UNIT/1 ML VIAL SC SCH ×3 (06:02→21:48)
[2018-08-01 07:34] VITALS: BP 132/61; PULSE 79; RESP 20
[2018-08-01] MEDS: ASPIRIN (EC) 81 MG TAB PO SCH (09:00)
[2018-08-01] MEDS: METOPROLOL 25 MG TAB PO SCH ×2 (09:18→21:44)
[2018-08-01] MEDS: MEGESTROL 40 MG TAB PO SCH ×4 (09:18→21:44)
--- NOTE | 2018-08-01 10:37 | PN ---
Date/Time of Note Date/Time of Note DATE: 08/01/18 TIME: 10:34 Assessment/Plan VTE Prophylaxis Risk score (from Ns)>0 risk: 6 SCD applied (from Ns): Yes Pharmacological prophylaxis: heparin Lines/Catheters IV Catheter Type (from Nrs): Saline Lock Urinary Cath still in place: Yes Assessment/Plan Hospital Course Assessment and plan 1. 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 Hypertension. - Continue on antihypertensives. 3. CAD with coronary artery stents. -It was reported that patient was not on any aspirin or statin medication at home. -Started on statin and aspirin in house 4. Severe peripheral artery disease -Continue on ASA and statin medication -Patient has a history of peripheral stents bilaterally for this 5. T12 compression fracture -Continue with analgesics. -Physical therapy - continue - had ortho consultation 6. Microcytic hypochromic anemia. -Monitor H&H. -Continue with iron supplements 7. Severe protein calorie nutrition -Dietary consult is following. 8. Failure to thrive. -Patient reports living at home by herself. -qualified craft worker electrician was consulted Disposition plan. f/u pathology/genomic studies. f/u case management coordinator for dispo for d/c. Patient at present lives alone and has difficulty with ambulation. Will follow up Discussed plan of care Dr. Franklin Result Diagram: 07/30/18 0936 07/30/18 0936 Subjective 24 Hr Interval Summary Free Text/Dictation comfortable at present. no s/s of distress. Exam/Review of Systems Exam Vitals Vital Signs Date Temp Pulse Resp B/P (MAP) Pulse Ox O2 O2 Flow FiO2 Time Delivery Rate 08/01/18 98.5 79 20 132/61 98 07:34 (84) 07/31/18 Room Air 02:00 Intake and Output 07/31/18 07/31/18 08/01/18 1515:00 23:00 07:00 IntakeIntake Total 480 ml 540 ml 140 ml OutputOutput Total 300 ml 550 ml 400 ml BalanceBalance 180 ml -10 ml -260 ml Exam Constitutional: alert, oriented, frail Psych: nl mood/affect Head: normocephalic Eyes: nl conjunctiva Neck: supple, non-tender Cardiovascular: regular rate and rhythm Gastrointestinal: soft, non-tender Musculoskeletal: No swelling Neurological: DOBBY LOOM FIXER II-XII intact, nl mental status, nl speech Medications Medication Current Medications IV Flush (NS 3 ml) 3 ml PER PROTOCOL IV ; Start 07/24/18 at 20:00 Ondansetron HCl (Zofran Tab) 4 mg Q6H PRN PO NAUSEA/VOMITING; Start 07/24/18 at 20:00 Acetaminophen (Tylenol Tab) 650 mg Q6H PRN PO .PAIN 1-3 OR TEMP; Start 07/24/18 at 20:00 Acetaminophen/ Hydrocodone Bitart ([place] (5/325)) 1 tab Q6H PRN PO .MOD PAIN 4- 6; Start 07/24/18 at 20:00 Docusate Sodium (Colace) 100 mg Q12H PRN PO .CONSTIPATION; Start 07/24/18 at 20:00 Bisacodyl (Dulcolax) 5 mg DAILY PRN PO .CONSTIPATION; Start 07/24/18 at 20:00 Heparin Sodium (Porcine) (Heparin (5000 Units/1ml)) 5,000 unit Q8 SC Last administered on 08/01/18at 06:02; Admin Dose 5,000 UNIT; Start 07/24/18 at 22:00 Aspirin (Halfprin) 81 mg DAILY PO Last administered on 07/29/18at 09:33; Admin Dose 81 MG; Start 07/26/18 at 10:00 Metoprolol Tartrate (Lopressor) 25 mg BID PO Last administered on 08/01/18at 09:18; Admin Dose 25 MG; Start 07/26/18 at 21:00 Hydralazine HCl (Apresoline) 10 mg Q4H PRN IV FOR SBP>170; Start 07/27/18 at 20:30 Megestrol Acetate (Megace) 40 mg QID PO Last administered on 08/01/18at 09:18; Admin Dose 40 MG; Start 07/29/18 at 09:00 RONI GLASS NP Aug 01, 2018 10:37
[2018-08-01 14:16] VITALS: BP 153/69; PULSE 78; RESP 18
[2018-08-01 20:03] VITALS: BP 113/54; PULSE 86; RESP 18
[2018-08-02 01:59] VITALS: BP 138/60; PULSE 73; RESP 16
[2018-08-02] MEDS: HEPARIN 5,000 UNIT/1 ML VIAL SC SCH ×2 (06:10→13:06)
[2018-08-02 08:17] VITALS: BP 162/77; PULSE 79; RESP 16
[2018-08-02] MEDS: ASPIRIN (EC) 81 MG TAB PO SCH (09:00)
[2018-08-02] MEDS: MEGESTROL 40 MG TAB PO SCH ×3 (09:21→17:33)
[2018-08-02] MEDS: METOPROLOL 25 MG TAB PO SCH (09:22)
[2018-08-02] MEDS ORDERED: METO-448 PO (13:40)
[2018-08-02] MEDS ORDERED: ASPI-1044 PO (13:40)
[2018-08-02] MEDS ORDERED: MEGE40TA PO (13:40)
[2018-08-02] MEDS ORDERED: FER325 PO (13:42)
[2018-08-02] MEDS ORDERED: OMEG-135 PO (13:42)
--- NOTE | 2018-08-02 13:43 | PDOCDIS ---
Discharge Instructions DIAGNOSIS Discharge Diagnosis . Suspicious soft tissue lung mass on the left 2. Hypertension. 3. CAD with coronary artery stents. 4. Severe peripheral artery disease 5. T12 compression fracture 6. Microcytic hypochromic anemia. 7. Severe protein calorie nutrition 8. Failure to thrive. CONDITION [id number] Patient Condition: [id number] Stable HOME CARE INSTRUCTIONS: [id number] Diet Instructions: [id number] Regular FOLLOW UP/APPOINTMENTS Follow-up Plan 1. Follow up with Dr. Graham Reinoso in one week Office Address [address] [place] [address], [address] [place] [address] Office RONI GLASS NP Aug 02, 2018 13:43
[2018-08-02 14:06] VITALS: BP 118/59; PULSE 80; RESP 16
== END 2018-08-02 18:40 | DRG 180 ==
LOC: E/R 16:12 → 2NE 19:44 → INTOOBSV 19:44 → 2NE 22:02 → OBSVTOIN 07-25 15:35
PROVIDERS: ADMIT Family Medicine; ATTEND Family Medicine
PROC: 0BBJ3ZX Excision of Left Lower Lung Lobe, Percutaneous Approach, Diagnostic (ICD-10-PCS; principal; 2018-07-25)
DX: C34.12 Malignant neoplasm of upper lobe, left bronchus or lung (principal); E43 Unspecified severe protein-calorie malnutrition; Z68.1 Body mass index [BMI] 19.9 or less, adult; M84.48XA Pathological fracture, other site, initial encounter for fracture; E86.0 Dehydration; I73.9 Peripheral vascular disease, unspecified; I10 Essential (primary) hypertension; I25.10 Atherosclerotic heart disease of native coronary artery without angina pectoris; D50.9 Iron deficiency anemia, unspecified; E78.5 Hyperlipidemia, unspecified; R62.7 Adult failure to thrive; Z79.82 Long term (current) use of aspirin; Z87.311 Personal history of (healed) other pathological fracture; Z87.891 Personal history of nicotine dependence; Z95.5 Presence of coronary angioplasty implant and graft
CPT/HCPCS: 36415; 71045; 71260; 74177; 77012; 80048; 80053; 80061; 81003; 82306; 82378; 82728; 83036; 83540; 83735; 84100; 84436; 84443; 84479; 84484; 85025; 85610; 85730; 86300; 86301; 86304; 87086; 88307; 88313; 88341; 88342; 93005; 93306; 97116; 97162; 97530; 99217; G0378; J1644; J2916; J3475; J7030; Q9967